=== PATIENT | female | born 1960 | race Caucasian/White ===

== ENCOUNTER 2016-11-01 05:45 | Day surgery (SDC) | payer MEDICARE, OTHER ==
[~2016-11-01] VITALS: Ht 167.6 cm; Wt 142.9 kg
--- OUTSIDE RECORDS SUMMARY | ~2016-11-01 | XMS ---
Demographics + + + | Address | [address] [place] [address] | | | [place] [address] | + + + | Preferred Language | Unknown | + + + | Marital Status | Unknown | + + + | Worship Affiliation | Unknown | + + + | Race | Unknown | + + + | Ethnic Group | Unknown | + + + Author + + + | Author | [facility] | + + + | Organization | [facility] | + + + | Address | 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, | | | | | | | | right, | | | | | | | | acquired | | | | | | +---------+ + + +--------+ + + | Problem | Morbid | | E66.01 | | Active | [id number] | | | obesity | | | | | | +---------+ + + +--------+ + + | Problem | Aneurysm | Q87.89 | | | Active | | | | osteoarthr | | | | | | | | itis | | | | | | | | syndrome | | | | | | +---------+ + + +--------+ + + | Problem | 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 | | | Active | 10085002 | | | a | | | | | | +---------+ + + +--------+ + + | Problem | Asthma | | J45.909 | | Active | 101907540 | +---------+ + + +--------+ + + | Problem | Skin | L98.9 | | | Active | 05159852 | | | lesion | | | | | | +---------+ + + +--------+ + + | Problem | 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 | | | Active | 77498855 | | | e lung | | | | | | | | disease | | | | | | +---------+ + + +--------+ + + | Problem | SAMAYOA | K75.81 | | | Active | [id number] | | | (nonalcoho | | | | | | | | lic | | | | | | | | steatohepa | | | | | | | | titis) | | | | | | +---------+ + + +--------+ + + | Problem | CKD | | N18.3 | | Active | 968263288 | | | (chronic | | | | | | | | kidney | | | | | | | | disease) | | | | | | | | stage 3, | | | | | | | | GFR 30-59 | | | | | | | | ml/min | | | | | | +---------+ + + +--------+ + + | Problem | Sleep | G47.30 | | | Active | 97861270 | | | apnea | | | | | | +---------+ + + +--------+ + + | Problem | Encounter | | Z13.89 | | Active | 739284340 | | | for | | | | | | | | screening | | | | | | | | for other | | | | | | | | disorder | | | | | | +---------+ + + +--------+ + + | Problem | CHF | | I50.9 | | Active | 15968335 | | | (congestiv | | | | | | | | e heart | | | | | | | | failure) | | | | | | +---------+ + + +--------+ + + | Problem | Depression | | F32.9 | | Active | 815535646 | +---------+ + + +--------+ + + | Problem | Maxillary | J33.8 | | | Active | 26923176 | | | sinus | | | | | | | | polyp | | | | | | +---------+ + + +--------+ + + | Problem | Emphysema, | | J43.9 | | Active | 33416828 | | | | | | | | | | | unspecifie | | | | | | | | d | | | | | | +---------+ + + +--------+ + + | Problem | Chronic | | G89.4 | | Active | 845190748 | | | pain | | | | | | | | syndrome | | | | | | +---------+ + + +--------+ + + | Problem | HTN | | I10 | | Active | 22675512 | | | (hypertens | | | | | | | | ion) | | | | | | +---------+ + + +--------+ + + | Problem | Obesity | E66.2 | | | Active | 810661262 | | | hypoventil | | | | | | | | ation | | | | | | | | syndrome | | | | | | +---------+ + + +--------+ + + | Problem | COPD | | J44.9 | | Active | 63567950 | | | (chronic | | | | | | | | obstructiv | | | | | | | | e | | | | | | | | pulmonary | | | | | | | | disease) | | | | | | +---------+ + + +--------+ + + | Problem | DAWOOD | G47.33 | | | Active | 52340903 | | | (obstructi | | | | | | | | ve sleep | | | | | | | | apnea) | | | | | | +---------+ + + +--------+ + + | Problem | Localized | | R60.0 | | Active | 1674642 | | | edema | | | | | | +---------+ + + +--------+ + + | Problem | Osteoarthr | M15.9 | | | Active | 959650665 | | | itis of | | | | | | | | multiple | | | | | | | | joints | | | | | | +---------+ + + +--------+ + + ALLERGIES + + + + +---------+ | Substance | Reaction | Event Type | Date | Status | + + + + +---------+ | N.K.D.A. | Unknown | Non Drug | Oct, | Unknown | | | | Allergy | | | + + + + +---------+ SOCIAL HISTORY No smoking Hx information available PLAN OF CARE + +---------+ | Activity | Details | + +---------+ +---+ | | +---+ + + + | Follow Up | 6 Weeks Reason:null | + + + VITAL SIGNS + + + + | Height | 67 in | 2016-10-25 | + + + + | Weight | 318.4 lbs | 2016-10-25 | + + + + | BMI | 49.86 kg/m2 | 2016-10-25 | + + + + | Temperature | 97.9 degrees Fahrenheit | 2016-10-25 | + + + + | Heart Rate | 64 /min | 2016-10-25 | + + + + | Blood pressure systolic | 142 mm Hg | 2016-10-25 | + + + + | Blood pressure diastolic | 77 mm Hg | 2016-10-25 | + + + + MEDICATIONS + + + + + + + +--------+ | Medicati | Instruct | Dosage | Frequenc | Start | End Date | Duration | Status | | on | ions | | y | Date | | | | + + + + + + + +--------+ | Zoloft | Orally | 1 tablet | 24h | 26 Jun, | | 90 days | Active | | 100 MG | Once a | | | 2015 | | | | | | day | | | | | | | + + + + + + + +--------+ | Ventolin | Inhalati | 2 puffs | | 05 October, | | 1 Month | Active | | HFA 108 | on every | as | | 2016 | | | | | (90 | 4 hrs | needed | | | | | | | Base) | prn | | | | | | | | MCG/ACT | SOB/Whee | | | | | | | | | ze/Cough | | | | | | | + + + + + + + +--------+ | Amlodipi | Orally | 1 tablet | 24h | 10 Feb, | | 90 days | Active | | ne | Once a | | | 2015 | | | | | Besylate | day | | | | | | | | 5 MG | | | | | | | | + + + + + + + +--------+ | Ventolin | Inhalati | 2 puffs | 4h | | | | Active | | HFA 90 | on every | as | | | | | | | MCG/ACT | 4 hrs | needed | | | | | | + + + + + + + +--------+ | Sertrali | Orally | 2 tablet | 24h | | | 30 days | Active | | ne HCl | Once a | | | | | | | | 100 MG | day | | | | | | | + + + + + + + +--------+ | Lisinopr | Orally | 1 tablet | 24h | Jun, | | 90 days | Active | | il 20 mg | Once a | | | 2015 | | | | | | day | | | | | | | + + + + + + + +--------+ | BuSpar | Orally | 1 tablet | 12h | 20 Harley, | | 30 | Active | | 15 MG | Twice a | | | 2017 | | day(s) | | | | day | | | | | | | + + + + + + + +--------+ | Breo | | 1 puff | | | | | Active | | Ellipta | | | | | | | | | 100-25 | | | | | | | | | MCG/INH | | | | | | | | + + + + + + + +--------+ | Lasix 20 | Orally | 1 tablet | 24h | 11 Jun, | | 90 days | Active | | MG | Once a | | | 2015 | | | | | | day | | | | | | | + + + + + + + +--------+ | Furosemi | Orally | 1 tablet | 24h | | | | Active | | de 20 MG | Once a | | | | | | | | | day | | | | | | | + + + + + + + +--------+ | Erythrom | External | 1 | 12h | | | | Active | | ycin 2 % | ly Twice | applicat | | | | | | | | a day | ion to | | | | | | | | | affected | | | | | | | | | area | | | | | | + + + + + + + +--------+ RESULTS No Results PROCEDURES + + + + + | Procedure | Date Ordered | Related Diagnosis | Body Site | + + + + + | Office Visit, Est | October 25, 2016 | | | | Pt., Level 3 | | | | + + + + + | [facility] MED/CURRENT | October 25, 2016 | | | | MED MERGE | | | | + + + + + IMMUNIZATIONS No Known Immunizations"
--- OUTSIDE RECORDS SUMMARY | ~2016-11-01 | XMS ---
Demographics + + + | Address | [address] [place] [address] | | | [place] [address] | + + + | Preferred Language | Unknown | + + + | Marital Status | Unknown | + + + | Nondenominational Affiliation | Unknown | + + + | Race | Unknown | + + + | Ethnic Group | Unknown | + + + Author + + + | Author | [facility] | + + + | Organization | [facility] | + + + | Address | [address] | | | [place] [address] | + + + | Phone | | + + + Care Team Providers + + + + | Care Flight Test Shop Mechanic Name | Role | Phone | + + + + Unavailable | Unavailable | + + + + PROBLEMS +---------+ + + +--------+ + + | Type | Condition | ICD9-CM | OAY28-PU | Onset | Condition | SNOMED | | | | Code | Code | Dates | Status | Code | +---------+ + + +--------+ + + | Problem | Osteoarthr | M15.9 | | | Active | [id number] | | | itis of | | [...] | L98.9 | | | Active | 20652270 | | | lesion | | | | | | +---------+ + + +--------+ + + | Problem | 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 | | | Active | 44871692 | | | e lung | | | | | | | | disease | | | | | | +---------+ + + +--------+ + + | Problem | Encounter | | Z13.89 | | Active | 401277751 | | | for | | | | | | | | screening | | | | | | | | for other | | | | | | | | disorder | | | | | | +---------+ + + +--------+ + + | Problem | SAMAYOA | K75.81 | | | Active | 479162762 | | | (nonalcoho | | | | | | | | lic | | | | | | | | steatohepa | | | | | | | | titis) | | | | | | +---------+ + + +--------+ + + | Problem | Sleep | G47.30 | | | Active | 80170928 | | | apnea | | | | | | +---------+ + + +--------+ + + | Problem | Morbid | | E66.01 | | Active | 236687593 | | | obesity | | | | | | +---------+ + + +--------+ + + | Problem | CHF | | I50.9 | | Active | 29077618 | | | (congestiv | | | | | | | | e heart | | | | | | | | failure) | | | | | | +---------+ + + +--------+ + + | Problem | CKD | | N18.3 | | Active | 532790965 | | | (chronic | | | [...] | | G89.4 | | Active | 278305035 | | | pain | | | | | | | | syndrome | | | | | | +---------+ + + +--------+ + + | Problem | Depression | | F32.9 | | Active | 722863872 | +---------+ + + +--------+ + + | Problem | Asthma | | J45.909 | | Active | 569435017 | +---------+ + + +--------+ + + | Problem | Emphysema, | | J43.9 | | Active | 06627394 | | | | | | | | | | | unspecifie | | | | | | | | d | | | | | | +---------+ + + +--------+ + + | Problem | Localized | | R60.0 | | Active | 8627569 | | | edema | | | | | | +---------+ + + +--------+ + + | Problem | HTN | | I10 | | Active | 69826551 | | | (hypertens | | | | | | | | ion) | | | | | | +---------+ + + +--------+ + + | Problem | Maxillary | J33.8 | | | Active | 63279894 | | | sinus | | | | | | | | polyp | | | | | | +---------+ + + +--------+ + + | Problem | Obesity | E66.2 | | | Active | 646370152 | | | hypoventil | | | | | | | | ation | | | | | | | | syndrome | | | | | | +---------+ + + +--------+ + + | Problem | COPD | | J44.9 | | Active | 29155057 | | | (chronic | | | | | | | | obstructiv | | | | | | | | e | | | | | | | | pulmonary | | | | | | | | disease) | | | | | | +---------+ + + +--------+ + + | Problem | DAWOOD | G47.33 | | | Active | 87688994 | | | (obstructi | | | [...] N.K.D.A. | Unknown | Non Drug | September, | Unknown | | | | Allergy | | | + + + + +---------+ SOCIAL HISTORY No smoking Hx information available PLAN OF CARE + +---------+ | Activity | Details | + +---------+ +---+ | | +---+ + + + | Follow Up | 2 Months Reason:null | + + + VITAL SIGNS + + + + | Height | 67 in | 2016-10-05 | + + + + | Weight | 315.4 lbs | 2016-10-05 | + + + + | BMI | 49.39 kg/m2 | 2016-10-05 | + + + + | Temperature | 97.8 degrees Fahrenheit | 2016-10-05 | + + + + | Heart Rate | 77 /min | 2016-10-05 | + + + + | Blood pressure systolic | 147 mm Hg | 2016-10-05 | + + + + | Blood pressure diastolic | 85 mm Hg | 2016-10-05 | + + + + MEDICATIONS + [...] | 1 tablet | 24h | 11 Feb, | | 90 days | Active | | MG | Once a | | | 2016 | | | | | | day [...] | 1 tablet | 24h | 10 Oct, | | 90 days | Active | | ne | Once a | | | 2015 | | | | | Besylate | day | | | | | | | | 5 MG | | | | | | | | + + + + + + + +--------+ | Augmenti | Orally | one | 12h | 31 September, | 7 Harley, | 7 days | Active | | n | twice a | tablet | | 2017 | 2017 | | | | 500-125 | day | | | | | | | | MG | | | | | | | | + + + + + + + +--------+ | Ventolin | Inhalati | 2 puffs | | 05 October, | | 1 Month | Active | | HFA 108 | on every | as | | 2017 | | | | | (90 | [...] + | Office Visit, Est | October 05, 2016 | | | | Pt., Level 4 | | | | + + + + + | [facility] MED/CURRENT | October 05, 2016 | | | | MED MERGE | | | | + + + + + IMMUNIZATIONS No Known Immunizations"
[~2016-11-01 05:45] MED LIST: LASIX20 MG PO; LISINOPRIL20 MG PO; NORCO 10-325 T1 EACH PO; TYLENOL EXTRA500 MG PO; ZOLOFT100 MG PO
[2016-11-01] MEDS ORDERED: NORVASC5 MG PO (05:57)
--- NOTE | 2016-11-01 08:19 | NUR ---
11/01/16 0819 Xi De La Garza 0802-PATIENT ARRIVED TO PACU ON 10L MASK WEANED TO 6L O2 SAT 100% PATIENT REACTIVE AND RESPONDS TO VOICE DENIES PAIN EYES CLOSED. GAUZE TO NASAL CDI.
--- NOTE | 2016-11-01 08:46 | NUR ---
COFFEE AND ICED WATER GIVEN. CALL LIGHT W/IN REACH.
[2016-11-01] MEDS ORDERED: KEFLEX500 MG PO (08:57)
[2016-11-01] MEDS ORDERED: NORCO 5-325 TA1 EACH PO (08:57)
--- NOTE | 2016-11-01 09:53 | NUR ---
PT UP TO BR W/RN STANDBY. PT AMBULATES WELL AND DENIES DIZZINESS. PT REPORTS SUCCESSFUL VOID AND REQ DC HOME. PT CALLING RIDE HOME.
--- NOTE | 2016-11-01 09:57 | NUR ---
VERBAL DC INSTRUCTIONS GIVEN AND MD IN TO SPEAK W/PATIENT. PATIENT REPORTS CONCERNS W/TAKING NORCO AND MD INSTRUCTS HER TYLENOL AND IBUPROFEN OTC IS FINE TO TAKE IN NORCO'S PLACE. PT VERBALIZES UNDERSTANDING.
== END 2016-11-01 10:30 | disposition home or self-care (01) ==
LOC: DS 05:45 → OPS 05:45 → DS 06:45 → OPS 06:45
PROVIDERS: Otolaryngology
PROC: 09BV4ZZ Excision of Left Ethmoid Sinus, Percutaneous Endoscopic Approach (ICD-10-PCS; principal; 2016-11-01 06:45)
DX: J32.2 Chronic ethmoidal sinusitis (principal); J33.8 Other polyp of sinus; I10 Essential (primary) hypertension; J44.9 Chronic obstructive pulmonary disease, unspecified; N19 Unspecified kidney failure; F32.9 Major depressive disorder, single episode, unspecified; Z96.641 Presence of right artificial hip joint; Z98.890 Other specified postprocedural states
CPT/HCPCS: 00160; J0330; J0690; J1100; J2250; J2405; J2704; J3010; J7120

== ENCOUNTER 2017-09-05 07:12 | Day surgery (SDC) | payer MEDICARE, OTHER ==
[~2017-09-05] VITALS: Ht 167.6 cm; Wt 138.8 kg
[~2017-09-05 07:12] MED LIST changes: +KEFLEX500 MG PO; +NORCO 5-325 TA1 EACH PO; +NORVASC5 MG PO
[2017-09-05] MEDS ORDERED: FLUOXETINE HCL40 MG PO (07:31)
[2017-09-05] MEDS ORDERED: TOLTERODINE TART1 MG PO (07:32)
[2017-09-05] MEDS ORDERED: BUPROPION HCL100 MG PO (07:32)
[2017-09-05] MEDS ORDERED: VENTOLIN HFA18 GM INH (07:33)
[2017-09-05] MEDS ORDERED: BREO ELLIPTA I1 EACH INH (07:33)
--- NOTE | 2017-09-05 08:58 | NUR ---
09/05/17 0858 Radha Guillermo 0812 PATIENT ARRIVES TO PACU SLEEPING, AWAKENS WITH VERBAL STIMULI, ANSWERS QUESTIONS THEN BACK TO SLEEP. RESP EVEN AND UNLABORED, OXYMASK AT 5 LITERS.
--- NOTE | 2017-09-05 09:29 | OR ---
[facility] [address] [place], [place] [address] Signed DATE OF OPERATION: 09/05/2017 SURGEON: Lopez Mills MD PREOPERATIVE DIAGNOSES: 1. Diverticulosis. 2. Internal hemorrhoids. 3. Paternal grandmother with colon cancer in her 40s. POSTOPERATIVE DIAGNOSIS: Vnowacu-wn-aglubixa internal hemorrhoids. PROCEDURE: Colonoscopy without biopsy. ESTIMATED BLOOD LOSS: None. INDICATIONS: Ivana is a 57-year-old female who came to us in 2013 for a colonoscopy. However, she had fallen and needed a right hip replacement and had been on quite a bit of morphine. We gave her 8 mg of Versed and 150 mcg of fentanyl to time and we could not get her sleep whatsoever. We had to terminate the colonoscopy in the sigmoid colon. We did see a few diverticula and some internal hemorrhoids. In addition, her paternal grandmother developed colon cancer in her late 40s and from the colon cancer by age 56. In the meantime, Ivana is recovered from her hip and doing much better. She has been off all narcotics now for about 4 years. She wanted to come back and repeat the colonoscopy at this time. She has no lower GI complaints. I gave her a pamphlet on colonoscopy. We looked at that together along with the risks including, but not limited to gas bloating, crampy abdominal pain, bleeding, perforation, requiring surgery, and missed diagnosis. We also reviewed the issue of the IV Versed and fentanyl. We offered propofol with an anesthesia provider and she declined. She wanted to try the Versed and fentanyl. PROCEDURE NOTE: Ivana was taken into our endoscopy suite and placed in the left lateral decubitus position. She was given 8 mg of Versed and 150 mcg of fentanyl and was still moaning and moving about the bed. We did get the camera into the cecum itself. Fortunately, her scope was technically easy and the prep was quite good. We have taken some pictures for photodocumentation. The scope was then slowly withdrawn. We saw no pathology in the entire colon or rectum. She may have had some diverticulosis. We simply did not Electronically Signed By: LOPEZ MILLS MD 09/05/17 0929 PATIENT NAME: IVANA PALACIOS OPERATIVE REPORT DATE OF : 62 REPORT #: [id number] PHYSICIAN: LOPEZ MILLS MD PCP: IRVING STEWART MD REPORT IS CONFIDENTIAL AND NOT TO BE RELEASED WITHOUT AUTHORIZATION [facility] [address] [place], [place] [address] Signed see them. Upon retroflexion of the scope, she does have minimal to moderate internal hemorrhoids. After this, the gas was suctioned out. The colonoscope removed. In general, Ivana tolerated the procedure, but moan and groan most of the procedure and was awaken and certainly was awake during retroflexion of the scope in the rectum. RECOMMENDATIONS: Ivana will need to follow up every 5 years for repeat colonoscopy due to her family history. She should strongly consider propofol infusion for her future endoscopies. Lopez Mills MD ALB/MODL /[id number] cc: MD Irving David MD Copies: LOPEZ MILLS MD, MALCOLM MD ~ Electronically Signed By: LOPEZ MILLS MD 09/05/17 0929 PATIENT NAME: IVANA PALACIOS OPERATIVE REPORT DATE OF : 62 REPORT #: [id number] PHYSICIAN: LOPEZ MILLS MD PCP: IRVING STEWART MD REPORT IS CONFIDENTIAL AND NOT TO BE RELEASED WITHOUT AUTHORIZATION
== END 2017-09-05 09:35 | disposition home or self-care (01) ==
LOC: DS 07:12 → OPS 07:12 → DS 08:15 → OPS 09:35
PROVIDERS: Colon & Rectal Surgery
PROC: 0DJD8ZZ Inspection of Lower Intestinal Tract, Via Natural or Artificial Opening Endoscopic (ICD-10-PCS; principal; 2017-09-05 08:15)
DX: Z12.11 Encounter for screening for malignant neoplasm of colon (principal); K64.8 Other hemorrhoids; I13.0 Hypertensive heart and chronic kidney disease with heart failure and stage 1 through stage 4 chronic kidney disease, or unspecified chronic kidney disease; I50.9 Heart failure, unspecified; N18.3 Chronic kidney disease, stage 3 (moderate); J44.9 Chronic obstructive pulmonary disease, unspecified; G47.33 Obstructive sleep apnea (adult) (pediatric); E78.2 Mixed hyperlipidemia; M19.90 Unspecified osteoarthritis, unspecified site; E66.01 Morbid (severe) obesity due to excess calories; Z68.42 Body mass index [BMI] 45.0-49.9, adult; Z80.0 Family history of malignant neoplasm of digestive organs; Z79.51 Long term (current) use of inhaled steroids; Z79.899 Other long term (current) drug therapy
CPT/HCPCS: 99153; G0500; J2250; J3010; J7120

== ENCOUNTER 2020-01-06 12:39 | Emergency (ER) | payer MEDICARE, OTHER ==
[~2020-01-06] VITALS: Ht 167.6 cm; Wt 141.5 kg
--- OUTSIDE RECORDS SUMMARY | ~2020-01-06 | XMS | Encounter Summary ---
Demographics + + + | Address | [address] | | | [place] [address] | + + + | Home Phone | | + + + | Preferred Language | Unknown | + + + | Marital Status | Single | + + + | Pentecostalism Affiliation | Unknown | + + + | Race | White | + + + | Ethnic Group | Not or | + + + Author + + + | Author | [facility] | | | and [place] | + + + | Organization | [facility] | | | and [place] | + + + | Address | Unknown | + + + | Phone | Unavailable | + + + Support + + +---------+ + | Name | Relationship | Address | Phone | + + +---------+ + | To List Per Pt None | ECON | Unknown | | + + +---------+ + Care Team Providers + +------+ + | Care Staff Services Manager Name | Role | Phone | + +------+ + | Irving Norris MD | PCP | | + +------+ + Reason for Visit + +--------+ + | Reason | Onset | Comments | | | Date | | + +--------+ + | Appointment | 10/07/ | | | | 2016 | | + +--------+ + Encounter Details +--------+ + + + + | Date | Type | Department | Care Team | Description | +--------+ + + + + | 10/07/ | Telephone | [facility] | [place], | [place] | | 2017 | | PULMONARY [address] | MD [address] | | | | | [place], | [place], [place] | | | | | [place] [address] | [address] | | | | | [phone] | | | +--------+ + + + + Social History + + + +--------+ + | Tobacco Use | Types | Packs/Day | Years | Date | | | | | Used | | + + + +--------+ + | Former Smoker | Cigarettes | 3 | | 05/15/1979 - | | | | | | 12/03/2000 | + + + +--------+ + + +---+---+---+ | Smokeless Tobacco: | | | | | Never Used | | | | + +---+---+---+ + + +---------+ + | Alcohol Use | Drinks/Week | oz/Week | Comments | + + +---------+ + | No | 0 Standard drinks | 0.0 | | | | or equivalent | | | + + +---------+ + + + + | Sex Assigned at | Date Recorded | | | | + + + | Not on file | | + + + documented as of this encounter Miscellaneous Notes Telephone Encounter - Julianne Babcock - 10/07/2016 2:48 PM PDTPatient declined to schedul e a yearly follow up in April. 2:4 9 PM PDTdocumented in this encounter Plan of Treatment Not on filedocumented as of this encounter Visit Diagnoses Not on filedocumented in this encounter"
--- OUTSIDE RECORDS SUMMARY | ~2020-01-06 | XMS | Encounter Summary ---
Demographics + + + | Address | [address] | | | [place] [address] | + + + | Home Phone | | + + + | Preferred Language | Unknown | + + + | Marital Status | Single | + + + | Lutheran Affiliation | Unknown | + + + | Race | White | + + + | Ethnic Group | Not or | + + + Author + + + | Author | [facility] | | | and Shajiana | + + + | Organization | [facility] | | | and [...] Team Providers + +------+ + | Care Stable Helper Name | Role | Phone | + +------+ + | Irving Norris MD | PCP | | + +------+ + Reason for Visit +--------+ + | Reason | Comments | +--------+ + | Asthma | 6 wk follow up | +--------+ + Encounter Details +--------+---------+ + + + | Date | Type | Department | Care Team | Description | +--------+---------+ + + + | 04/27/ | Office | [facility] | Harshal Vincent, | Moderate persistent | | 2015 | Visit | PULMONARY [address] | MD [address] | asthma without | | | | [place], | [place], [place] | complication | | | | [place] [address] | [id number] | (Primary Dx); DAWOOD on | | | | [phone] | | CPAP; Restrictive | | | | | | lung disease | +--------+---------+ + + + Social History + + [...] | | | + +---+---+---+ + + | Tobacco Cessation: Counseling Given: No | + + + + +---------+ + | Alcohol Use [...] + + documented as of this encounter Last Filed Vital Signs + + + + + | Vital Sign | Reading | Time Taken | Comments | + + + + + | Blood Pressure | 114/80 | 04/27/2016 2:14 PM | | | | | PST | | + + + + + | Pulse | 84 | 04/27/2016 2:14 PM | | | | | PST | | + + + + + | Temperature | - | - | | + + + + + | Respiratory Rate | - | - | | + + + + + | Oxygen Saturation | 95% | 04/27/2016 2:14 PM | | | | | PST | | + + + + + | Inhaled Oxygen | - | - | | | Concentration | | | | + + + + + | Weight | 146.3 kg (322 lb 9.6 | 04/27/2016 2:14 PM | | | | oz) | PST | | + + + + + | Height | 165.1 cm (5' 5") | 04/27/2016 2:14 PM | | | | | PST | | + + + + + | Body Mass Index | 53.68 | 04/27/2016 2:14 PM | | | | | PST | | + + + + + documented in this encounter Patient Instructions Patient Instructions Harshal Vincent MD - 04/27/2016 2:58 PM PST Continuous Positive Air Pressure (CPAP) Continuous positive air pressure (CPAP)uses gentle air pressure to hold the airway open. CPAP is often the most effective treatment for sleep apnea and severe snoring. It works very well for many people. But keep in mind that it can take several adjustments before the setu p is right for you. How CPAP works The CPAPmachine is asmall portable pump beside the bed. The pumpsends air through a h ose, which is held over your noseand mouthby a mask.Mild air pressureis gently pushe d through your airway. The air pressure nudges sagging tissues aside. This widens the airway so you can breathe better. CPAP may be combined with other kinds of therapy for sleep apnea . A mask over the nose gently directs air into the throat to keep the airway open. Types of air pressure treatments There are different types of CPAP. Your doctor or CPAP highway engineering technician will help you decide whic h type is best for you: Basic CPAPkeeps the pressure constant all night long. A bilevel device(BiPAP)providesmore pressure when you breathe in and less when you breathe out.A BiPAP machine also may be set to provide automatic breaths to maintain gayle thing if you stop breathing while sleeping. An autoCPAP deviceautomatically adjusts pressure throughout the night and in response to changes such as body position, sleep stage, and snoring. [id number] [employer]. [address] [place] [address], [place] [address]. All righ ts reserved. This information is not intended as a substitute for professional medical care. Always follow your healthcare professional's instructions. documented in this encounter Progress Notes Harshal Vincent MD - 04/27/2016 3:18 PM PSTFormatting of this note might be different f rom the original. Pulmonary Follow Up 04/27/2016 HPI Ivana Robb is a 55 y.o. female patient of Irving Norris MD here today for follow up of asthma, restrictive lung disease and obstructive sleep apnea. The patient's last visit was on 03/14/16. Since the last visit she feels like their asthma has been stable. They have not had any acute illnesses resulting in worsening asthma sympt oms. They have not required a burst of prednisone since our last appointment. Specificall y 0 tapers of prednisone have occurred over the interval. Lastly Ivana notes 0 ED visits and 0 hospitalizations for asthma have occurred since the last appointment. Their controller medication regimen currently consists of Breo 100/25 once daily. Apparent ly since our last clinic appointment the patient was taken off of Breo and placed on Dulera secondary to her insurance. Dulera did not result in clinical improvement. She was subsequ ently placed on Advair and noted that it caused her "lungs hurt". The patient is back using Breo and feels 150% better. They do feel like this medication regimen is effective at controlling their symptoms. Curr ently Ivana is using their rescue albuterol, Ventolin, 1 times a week. Currently Ivana reports being able to walk 100 1 50 yards at their own pace on level [facility] before becoming symptomatic. The patient reports actively trying to lose weight. She does not cough chronically, and does not produce mucous. She does not report symptoms of heartburn or acid reflux. They have not had recent symptoms of nasal congestion, runny nose or post nasal drip. New triggers since the last appointment include none. Ivana Robb is not smoking cigarettes. The patient has received this year's influenza vaccination. They are up to date with their Pneumovax and Prevnar 13. Patient is going to bed at 10 PM and awakening at 6 AM. She is using CPAP without. Appare ntly the patient's CPAP device does not allow for downloaded compliance information. Her weight is down 2 pounds and 7 ounces since her last clinic appointment. Past Medical History Past Medical History Diagnosis Date Hypertension COPD (chronic obstructive pulmonary disease) ([facility]) 2005 Obesity Sleep apnea on CPAP since 2005 CHF (congestive heart failure) ([facility]) Depression Arthritis Osteoarthritis Mitral regurgitation Restrictive lung disease Asthma patient denies Pneumonia multiple episodes 1070-1492 Chronic renal disease PRES (posterior reversible encephalopathy syndrome) Allergies: No Known Allergies Medications: Current outpatient prescriptions: acetaminophen (TYLENOL) 500 mg tablet, Take 2,000 mg by mouth Daily., Disp: , Rfl: albuterol (VENTOLIN HFA) 90 mcg/puff inhaler, Inhale 2 puffs into the lungs every 4 ho urs as needed for Wheezing., Disp: , Rfl: amLODIPine (NORVASC) 5 mg tablet, Take one tablet daily, Disp: , Rfl: 0 BREO ELLIPTA 100-25 MCG/INH inhaler, Inhale 1 puff into the lungs Daily., Disp: , Rfl: furosemide (LASIX) 20 mg tablet, Take 20 mg by mouth Daily., Disp: , Rfl: lisinopril (PRINIVIL, ZESTRIL) 20 mg tablet, Take 20 mg by mouth Daily., Disp: , Rfl: sertraline (ZOLOFT) 100 mg tablet, Take 100 mg by mouth Daily., Disp: , Rfl: Immunizations: Immunization History Administered Date(s) Administered INFLUENZA 65 Y OR >, TRIVALENT HIGH-DOSE 02/15/2016 INFLUENZA PF QUAD(PED/ADOL/ADULT),PSKT or VIAL 07/22/2015 PNEUMOCOCCAL CONJUGATE 13-VALENT (PCV13) 01/12/2015 PNEUMOCOCCAL POLYSACCHARIDE 23-VALENT (PPSV23) 08/29/2005 TDAP, (ADOL/ADULT) 05/11/2014 Review of Systems Constitutional: Denies fever, chills, sweats, fatigue/weakness, and unexpected weight cain ge. Sleep: Denies trouble sleeping, excessive snoring, and daytime sleepiness. Eyes: Denies vision change, and eye irritation. ENT: Denies earache, tinnitus, decreased hearing, nosebleeds, sore throat, and hoarseness. Resp: See HPI. CV: Denies neck/chest/jaw pain with exertion, palpitations, lightheadedness, syncope, dysp adonay on exertion, orthopnea, PND, peripheral edema, and claudication. GI: Denies trouble swallowing, nausea, vomiting, abdominal pain, diarrhea,melena, and hem atochezia. Neurologic: Denies frequent headaches, seizures, tremors, numbness or tingling in hands or feet, vertigo, and falls in the past 6 months. Allergy Denies urticaria, allergic rash, hay fever. Objective BP 114/80 mmHg | Pulse 84 | Ht 1.651 m (5' 5") | Wt 146.33 kg (322 lb 9.6 oz) | BMI 53.68 k g/m2 | SpO2 95% | ? No Appearance: Alert, cooperative, no distress, appears stated age. Head: Normocephalic, without obvious abnormality, atraumatic. Eyes: PERRL, conjunctiva/corneas clear. Nose: Nares normal, septum midline, mucosa normal, no drainage or sinus tenderness. Throat: Lips, mucosa, and tongue normal. Teeth/dentures normal. No thrush. Neck: Supple, symmetrical, no JVD. Lungs: No accessory muscle use, breath sounds are clear to auscultation bilaterally, no w heezes, crackles or rhonchi. No dullness to percussion. Chest Wall: No tenderness or deformity. Heart: Regular rate and rhythm, S1, S2 normal, no murmur, rub or gallop. Extremities: Extremities normal, atraumatic, no cyanosis, clubbing. none edema. Skin: Warm and dry. Lymph nodes: Cervical and supraclavicular nodes normal. Neurologic: Gait normal. Data: Attempts to obtain a copy of the patient's prior sleep study were not successful. Assessment 1. Asthma moderate persistent primarily based on the medications required to maintain ad equate asthma control. As noted above it appears that Breo 100/25 alone is able to control the patient symptoms without significant side effects. Ivana is up-to-date with respect to her seasonal influenza, Pneumovax and Prevnar 13. 2. Obstructive sleep apnea severity unclear. Currently treated with auto titrating CPAP . Good compliance is noted in the patient's symptoms appear well controlled. 3. Restrictive lung disease secondary to morbid obesity. Weight is gradually decreasing . Patient congratulated regarding her progress. Plan 1. Seasonal influenza vaccination February 2017. 2. Pulmonary clinic follow-up appointment in 12 months time. 3. No plan to change the patient's asthma medications at this time. CC: Irving Norris MD documented in this encounter Plan of Treatment Not on filedocumented as of this encounter Visit Diagnoses + + | Diagnosis | + + | Moderate persistent asthma without complication - Primary Unspecified asthma | + + | DAWOOD on CPAP Obstructive sleep apnea (adult) (pediatric) | + + | Restrictive lung disease Other diseases of lung, not elsewhere classified | + + documented in this encounter
--- OUTSIDE RECORDS SUMMARY | ~2020-01-06 | XMS ---
Demographics + + + | Address | [address] [place] [address] | | | [place] [address] | + + + | Preferred Language | Unknown | + + + | Marital Status | Unknown | + + + | Jehovah'S Witness Affiliation | Unknown | + + + | Race | Unknown | + + + | Ethnic Group | Unknown | + + + Author + + + | Author | [facility] | + + + | Organization | [facility] | + + + | Address | [address] | | | [place] [address] | + + + | Phone | | + + + Care Team Providers + + + + | Care Manager Sterile Name | Role | Phone | + + + + Unavailable | Unavailable | + + + + PROBLEMS +---------+ + + +--------+ + + | Type | Condition | ICD9-CM | [id number] | Onset | Condition | SNOMED | [...] | | E66.01 | | Active | 306509005 | | | obesity | | | [...] | F40.00 | | | Active | 29710489 | | | a | | | | | | +---------+ + + +--------+ + + | Problem | Emphysema, | | J43.9 | | Active | 86259973 | | | | | | | | | | | unspecifie | | | | | | | | d | | | | | | +---------+ + + +--------+ + + | Problem | Skin | L98.9 | | | Active | 42105002 | | | lesion | | | | | | +---------+ + + +--------+ + + | Problem | Asthma | | J45.909 | | Active | 648582593 | +---------+ + + +--------+ + + | Problem | 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 | | | Active | 10092826 | | | e lung | | | | | | | | disease | | | | | | +---------+ + + +--------+ + + | Problem | CKD | | N18.3 | | Active | 928090413 | | | (chronic | | | [...] | G47.30 | | | Active | 45196740 | | | apnea | | | | | | +---------+ + + +--------+ + + | Problem | Encounter | | Z13.89 | | Active | 657528837 | | | for | | | | | | | | screening | | | | | | | | for other | | | | | | | | disorder | | | | | | +---------+ + + +--------+ + + | Problem | CHF | | I50.9 | | Active | 33501974 | | | (congestiv | | | | | | | | e heart | | | | | | | | failure) | | | | | | +---------+ + + +--------+ + + | Problem | Maxillary | J33.8 | | | Active | 82376638 | | | sinus | | | | | | | | polyp | | | | | | +---------+ + + +--------+ + + | Problem | Candidal | B37.2 | | | Active | 821761408 | | | intertrigo | | | | | | +---------+ + + +--------+ + + | Problem | Chronic | | G89.4 | | Active | 193914247 | | | pain | | | | | | | | syndrome | | | | | | +---------+ + + +--------+ + + | Problem | Depression | | F32.9 | | Active | 045770487 | +---------+ + + +--------+ + + | Problem | HTN | | I10 | | Active | 36399192 | | | (hypertens | | | | | | | | ion) | | | | | | +---------+ + + +--------+ + + | Problem | Obesity | E66.2 | | | Active | 195815638 | | | hypoventil | | | | | | | | ation | | | | | | | | syndrome | | | | | | +---------+ + + +--------+ + + | Problem | COPD | | J44.9 | | Active | 72781242 | | | (chronic | | | | | | | | obstructiv | | | | | | | | e | | | | | | | | pulmonary | | | | | | | | disease) | | | | | | +---------+ + + +--------+ + + | Problem | DAWOOD | G47.33 | | | Active | 25045963 | | | (obstructi | | | | | | | | ve sleep | | | | | | | | apnea) | | | | | | +---------+ + + +--------+ + + | Problem | SAMAYOA | K75.81 | | | Active | 547588405 | | | (nonalcoho | | | | | | | | lic | | | | | | | | steatohepa | | | | | | | | titis) | | | | | | +---------+ + + +--------+ + + | Problem | Localized | | R60.0 | | Active | 9331460 | | | edema | | | | | | +---------+ + + +--------+ + + | Problem | Osteoarthr | M15.9 | | | Active | [id number] | | | itis of | | | | | | | | multiple | | | | | | | | joints | | | | | | +---------+ + + +--------+ + + ALLERGIES + + + + +---------+ | Substance | Reaction | Event Type | Date | Status | + + + + +---------+ | Dl | Unknown | Non Drug | Dec, | Unknown | | | | Allergy | | | + + + + +---------+ SOCIAL HISTORY No smoking Hx information available PLAN OF CARE + +---------+ | Activity | Details | + +---------+ +---+ | | +---+ + + + | Follow Up | 3 Months Reason:null | + + + VITAL SIGNS + + + + | Height | 67 in | 2017-01-03 | + + + + | Weight | 320.8 lbs | 2017-01-03 | + + + + | BMI | 50.24 kg/m2 | 2017-01-03 | + + + + | Temperature | 97.7 degrees Fahrenheit | 2017-01-03 | + + + + | Heart Rate | 79 /min | 2017-01-03 | + + + + | Blood pressure systolic | 155 mm Hg | 2017-01-03 | + + + + | Blood pressure diastolic | 81 mm Hg | 2017-01-03 | + + + + MEDICATIONS + + + + + + + +--------+ | Medicati | Instruct | Dosage | Frequenc | Start | End Date | Duration | Status | | on | ions | | y | Date | | | | + + + + + + + +--------+ | Sertrali | | 2 TABLET | | | | | Active | | ne HCl | | ONCE A | | | | | | | 100 MG | | DAY | | | | | | | | | ORALLY | | | | | | | | | 30 DAYS | | | | | | + [...] | 1 tablet | 24h | 26 Feb, | | 90 days | Active | | il 20 mg | Once a | | | 2015 | | | | | | day | | | | | | | + + + + + + + +--------+ | Tolterod | Orally | 1 tablet | 12h | Dec, | 25 Feb, | 30 | Active | | ine | Twice a | | | 2017 | 2018 | day(s) | | | Tartrate | day | | | | | | | | 1 MG | | | | | | [...] + + + + + +--------+ RESULTS + +--------+ + + | Name | Result | Date | Reference Range | + +--------+ + + | Urinalysis, Dip | | 2017-01-03 | | | (IH) | | | | + +--------+ + + | Specific [place] | 1.015 | | | + +--------+ + + | pH | 5 | | | + +--------+ + + | Leukocytes | 25 | | | + +--------+ + + | Nitrite, Urine | neg | | | + +--------+ + + | Protein | neg | | | + +--------+ + + | Glucose | norm | | | + +--------+ + + | Ketones | neg | | | + +--------+ + + | Urobilingen, | norm | | | | Semi-Qn | | | | + +--------+ + + | Bilirubin | 1 | | | + +--------+ + + | Blood Hemoglobin | neg | | | | (BLD) | | | | + +--------+ + + PROCEDURES + + + + + | Procedure | Date Ordered | Related Diagnosis | Body Site | + + + + + | LAB URINALYSIS (DIP | Jan 03, 2017 | | | | STICK ONLY | | | | + + + + + | US URINE CAPACITY | Jan 03, 2017 | | | | MEASURE | | | | + + + + + | Office Visit, Est | Jan 03, 2017 | | | | Pt., Level 3 | | | | + + + + + IMMUNIZATIONS No Known Immunizations"
--- OUTSIDE RECORDS SUMMARY | ~2020-01-06 | XMS | Encounter Summary ---
Demographics + + + | Address | [address] | | | [place] [address] | + + + | Home Phone | | + + + | Preferred Language | Unknown | + + + | Marital Status | Single | + + + | Rastafarian Affiliation | Unknown | + + + | Race | White | + + + | Ethnic Group | Not or | + + + Author + + + | Author | [facility] | | | and Shajiana | + + + | Organization | [facility] | | | and [...] Team Providers + +------+ + | Care Esthetician And Manager Medical Spa Name | Role | Phone | + +------+ + | Irving Norris MD | PCP | | + +------+ + Encounter Details +--------+ + + + + | Date | Type | Department | Care Team | Description | +--------+ + + + + | 12/09/ | Abstract | [facility] [place] | Harshal Vincent, | | | 2015 | | PULMONARY [address] | | | | | [place], | [place] | | | | | [place] [address] | [address] | | | | | [phone] | | | +--------+ + + + + Social History + +-------+ +--------+ + | Tobacco Use | Types | Packs/Day | Years | Date | | | | | Used | | + +-------+ +--------+ + | Former Smoker | | 3 | | 05/15/1979 - | | | | | | 12/03/2000 | + +-------+ +--------+ + + +---+---+---+ | Smokeless Tobacco: | | | | | Never Used | | | | + +---+---+---+ + + +---------+ + | Alcohol Use | Drinks/Week | oz/Week | Comments | + + +---------+ + | No | | | | + + +---------+ + + + + | Sex Assigned at | Date Recorded | | | | + + + | Not on file | | + + + documented as of this encounter Plan of Treatment Not on filedocumented as of this encounter Visit Diagnoses Not on filedocumented in this encounter"
--- OUTSIDE RECORDS SUMMARY | ~2020-01-06 | XMS ---
Demographics + + + | Address | [address] | | | [place] [address] | + + + | Preferred Language | Unknown | + + + | Marital Status | Unknown | + + + | Voodoo Affiliation | Unknown | + + + | Race | Unknown | + + + | Ethnic Group | Unknown | + + + Author + + + | Author | [facility] | + + + | Organization | [facility] | + + + | Address | [address] | | | [place] [address] | + + + | Phone | | + + + Care Team Providers + + + + | Care Hospice Director Name | Role | Phone | + + + + Unavailable | Unavailable | + + + + PROBLEMS +---------+ + + +--------+ + + | Type | Condition | ICD9-CM | [id number] | Onset | Condition | SNOMED | [...] | | E66.01 | | Active | [id number] | | | obesity | | | [...] | F40.00 | | | Active | 82435214 | | | a | | | | | | +---------+ + + +--------+ + + | Problem | Emphysema, | | J43.9 | | Active | 78647206 | | | | | | | | | | | unspecifie | | | | | | | | d | | | | | | +---------+ + + +--------+ + + | Problem | Skin | L98.9 | | | Active | 18649218 | | | lesion | | | | | | +---------+ + + +--------+ + + | Problem | Asthma | | J45.909 | | Active | 802310240 | +---------+ + + +--------+ + + | Problem | 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 | | | Active | 63281215 | | | e lung | | | | | | | | disease | | | | | | +---------+ + + +--------+ + + | Problem | CKD | | N18.3 | | Active | 597613589 | | | (chronic | | | [...] | G47.30 | | | Active | 09205927 | | | apnea | | | | | | +---------+ + + +--------+ + + | Problem | Encounter | | Z13.89 | | Active | 970950805 | | | for | | | | | | | | screening | | | | | | | | for other | | | | | | | | disorder | | | | | | +---------+ + + +--------+ + + | Problem | CHF | | I50.9 | | Active | 56856795 | | | (congestiv | | | | | | | | e heart | | | | | | | | failure) | | | | | | +---------+ + + +--------+ + + | Problem | Maxillary | J33.8 | | | Active | 95392506 | | | sinus | | | | | | | | polyp | | | | | | +---------+ + + +--------+ + + | Problem | Candidal | B37.2 | | | Active | 731024810 | | | intertrigo | | | | | | +---------+ + + +--------+ + + | Problem | Chronic | | G89.4 | | Active | 870890582 | | | pain | | | | | | | | syndrome | | | | | | +---------+ + + +--------+ + + | Problem | Depression | | F32.9 | | Active | 689977536 | +---------+ + + +--------+ + + | Problem | HTN | | I10 | | Active | 07393304 | | | (hypertens | | | | | | | | ion) | | | | | | +---------+ + + +--------+ + + | Problem | Obesity | E66.2 | | | Active | 522921050 | | | hypoventil | | | | | | | | ation | | | | | | | | syndrome | | | | | | +---------+ + + +--------+ + + | Problem | COPD | | J44.9 | | Active | 57412113 | | | (chronic | | | | | | | | obstructiv | | | | | | | | e | | | | | | | | pulmonary | | | | | | | | disease) | | | | | | +---------+ + + +--------+ + + | Problem | DAWOOD | G47.33 | | | Active | 27950895 | | | (obstructi | | | | | | | | ve sleep | | | | | | | | apnea) | | | | | | +---------+ + + +--------+ + + | Problem | SAMAYOA | K75.81 | | | Active | 529200279 | | | (nonalcoho | | | | | | | | lic | | | | | | | | steatohepa | | | | | | | | titis) | | | | | | +---------+ + + +--------+ + + | Problem | Localized | | R60.0 | | Active | 7255421 | | | edema | | | | | | +---------+ + + +--------+ + + | Problem | Osteoarthr | M15.9 | | | Active | 076332138 | | | itis of | | [...] + | Height | 67 in | 2016-12-06 | + + + + | Weight | 318 lbs | 2016-12-06 | + + + + | BMI | 49.80 kg/m2 | 2016-12-06 | + + + + | Temperature | 97.4 degrees Fahrenheit | 2016-12-06 | + + + + | Heart Rate | 62 /min | 2016-12-06 | + + + + | Blood pressure systolic | 120 mm Hg | 2016-12-06 | + + + + | Blood pressure diastolic | 65 mm Hg | 2016-12-06 | + + + + MEDICATIONS + [...] + + | Office Visit, Est | Dec 06, 2016 | | | | Pt., Level 4 | | | | + + + + + | [facility] MED/CURRENT | Dec 06, 2016 | | | | MED MERGE | | | | + + + + + IMMUNIZATIONS No Known Immunizations"
--- OUTSIDE RECORDS SUMMARY | ~2020-01-06 | XMS | Encounter Summary ---
Demographics + + + | Address | [address] | | | [place] [address] | + + + | Home Phone | | + + + | Preferred Language | Unknown | + + + | Marital Status | Single | + + + | Gnosticism Affiliation | Unknown | + + + | Race | White | + + + | Ethnic Group | Not or | + + + Author + + + | Author | [facility] | | | and Shajiana | + + + | Organization | [facility] | | | [...] Providers + +------+ + | Care Staff Nurse Name | Role | Phone | + +------+ + | Irving Norris MD | PCP | | + +------+ + Encounter Details +--------+ + + + + | Date | Type | Department | Care Team | Description | +--------+ + + + + | 03/02/ | Orders Only | [facility] | Sami Brown MD | | | 2016 | | NEPHROLOGY [place] | [address] [place] | | | | | [address] [place] | [address] [place], [place] | | | | | [address] [place], [place] | [address] | | | | | [id number] | | | | | | [phone] | | | +--------+ + + + [...] Not on filedocumented as of this encounter Procedures + +--------+ + + + | Procedure Name | Priori | Date/Time | Associated Diagnosis | Comments | | | ty | | | | + +--------+ + + + | URINALYSIS WITH | Routin | 03/02/2017 | | Results for this | | MICROSCOPIC IF | e | 1:50 PM | | procedure are in the | | INDICATED | | PDT | | results section. | + +--------+ + + + | PROTEIN/CREATININE | Routin | 03/02/2017 | | Results for this | | RATIO, URINE | e | 1:50 PM | | procedure are in the | | | | PDT | | results section. | + +--------+ + + + documented in this encounter Results Protein/Creatinine Ratio, Urine (03/02/2017 1:50 PM PDT) + + + + + + | Component | Value | Ref Range | Performed | Pathologist | | | | | At | Signature | + + + + + + | Protein/Cre | 160.0 (A) | 0 - 150 | EXTERNAL | | | at Ratio | | | LAB | | + + + + + + + + | Specimen | + + | Urine specimen | | (specimen) | + + + +---------+ + + | Performing | Address | City/State/Zipcode | Phone Number | | Organization | | | | + +---------+ + + | EXTERNAL LAB | | | | + +---------+ + + Urinalysis with Microscopic if Indicated (03/02/2017 1:50 PM PDT) + + + + + + | Component | Value | Ref Range | Performed | Pathologist | | | | | At | Signature | + + + + + + | Color | Yellow | | EXTERNAL | | | | | | LAB | | + + + + + + | Clarity, | Clear | | EXTERNAL | | | Urine | | | LAB | | + + + + + + | Spec Grav, | 1.003 (A) | 1.005 - 1.030 | EXTERNAL | | | Fluid | | | LAB | | + + + + + + | Leukocyte | Negative | | EXTERNAL | | | Esterase, | | | LAB | | | Urine | | | | | + + + + + + | Nitrite, | Negative | | EXTERNAL | | | Urine | | | LAB | | + + + + + + | Urobilinoge | Normal | | EXTERNAL | | | n, Urine | | | LAB | | + + + + + + | Total | Negative | | EXTERNAL | | | Protein | | | LAB | | + + + + + + | pH, Urine | 7 | 5 - 9 | EXTERNAL | | | | | | LAB | | + + + + + + | Blood, | Negative | | EXTERNAL | | | Urine | | | LAB | | + + + + + + | Ketones | Negative | | EXTERNAL | | | | | | LAB | | + + + + + + | Bilirubin, | Negative | | EXTERNAL | | | Urine | | | LAB | | + + + + + + | Glucose, | Negative | | EXTERNAL | | | Urine | | | LAB | | + + + + + + + + | Specimen | + + | Urine specimen | | (specimen) | + + + + + | Narrative | Performed At | + + + | Bacteria: 1+ | EXTERNAL LAB | + + + + +---------+ + + | Performing | Address | City/State/Zipcode | Phone Number | | Organization | | | | + +---------+ + + | EXTERNAL LAB | | | | + +---------+ + + documented in this encounter Visit Diagnoses Not on filedocumented in this encounter"
--- OUTSIDE RECORDS SUMMARY | ~2020-01-06 | XMS | Clinical Summary ---
Demographics + + + | Address | [address] | | | [place] [address] | + + + | Home Phone | | + + + | Preferred Language | Unknown | + + + | Marital Status | Single | + + + | Baptism Affiliation | Unknown | + + + | Race | White | + + + | Ethnic Group | Not or | + + + Author + + + | Author | [facility] | | | and [place]aj[place] | + + + | Organization | [facility] | | | [...] Team Providers + +------+ + | Care Prototype Machinist Name | Role | Phone | + +------+ + | Irving Norris MD | PCP | | + +------+ + Allergies No Known Allergies Medications + + + +---------+------+------+-------+ | Medication | Sig | Dispensed | Refills | Star | End | Statu | | | | | | t | Date | s | | | | | | Date | | | + + + +---------+------+------+-------+ | sertraline | Take 100 mg by mouth | | 0 | | | Activ | | (ZOLOFT) 100 mg | Daily. | | | | | e | | tablet | | | | | | | + + + +---------+------+------+-------+ | furosemide (LASIX) | Take 20 mg by mouth | | 0 | | | Activ | | 20 mg tablet | Daily. | | | | | e | + + + +---------+------+------+-------+ | acetaminophen | Take 2,000 mg by | | 0 | | | Activ | | (TYLENOL) 500 mg | mouth Daily. | | | | | e | | tablet | | | | | | | + + + +---------+------+------+-------+ | lisinopril | Take 20 mg by mouth | | 0 | | | Activ | | (PRINIVIL, ZESTRIL) | Daily. | | | | | e | | 20 mg tablet | | | | | | | + + + +---------+------+------+-------+ | amLODIPine | Take one tablet | | 0 | 10/1 | | Activ | | (NORVASC) 5 mg | daily | | | 0/20 | | e | | tablet | | | | 16 | | | + + + +---------+------+------+-------+ | albuterol | Inhale 2 puffs into | | 0 | | | Activ | | (VENTOLIN HFA) 90 | the lungs every 4 | | | | | e | | mcg/puff inhaler | hours as needed for | | | | | | | | Wheezing. | | | | | | + + + +---------+------+------+-------+ | BREO ELLIPTA | Inhale 1 puff into | | 0 | | | Activ | | 100-25 MCG/INH | the lungs Daily. | | | | | e | | inhaler | | | | | | | + + + +---------+------+------+-------+ | busPIRone (BUSPAR) | Take 15 mg by mouth | | 0 | | | Activ | | 15 mg tablet | 2 times daily. | | | | | e | + + + +---------+------+------+-------+ | gabapentin | Take 300 mg by mouth | | 0 | | | Activ | | (NEURONTIN) 300 mg | Daily. | | | | | e | | capsule | | | | | | | + + + +---------+------+------+-------+ | tolterodine | Take 1 mg by mouth 2 | | 0 | | | Activ | | (DETROL) 1 mg tablet | times daily. 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 | 02/20/2017 | | (BMI) of 50.0 to 59.9 in adult | | + + + | Essential hypertension, benign | 02/20/2017 | + + + | Moderate persistent asthma without complication | 04/27/2016 | + + + | DAWOOD on CPAP | 04/27/2016 | + + + | Restrictive lung disease | 04/27/2016 | + + + Immunizations + + + + | Name | Administration Dates | Next Due | + + + + | INFLUENZA 66 Y OR >, | 02/15/2016 | | | TRIVALENT HIGH-DOSE | | | + + + + | INFLUENZA PF | 07/22/2015 | | | QUAD(PED/ADOL/ADULT) | | | | ,PSKT or VIAL | | | + + + + | PNEUMOCOCCAL | 01/12/2015 | | | CONJUGATE 13-VALENT | | | | (PCV13) | | | + + + + | PNEUMOCOCCAL | 08/29/2005 | | | POLYSACCHARIDE | | | | 23-VALENT (PPSV23) | | | + + + + | TDAP, (ADOL/ADULT) | 05/11/2014 | | + + + + Family History + + +------+ + | Medical History | Relation | Name | Comments | + + +------+ + | * | Brother | x4 | 3 healthy | + + +------+ + | Diabetes | Brother | x4 | | + + +------+ + | Cancer | Father | | Prostate | + + +------+ + | Prostate cancer | Father | | | + + +------+ + | COPD | Mother | | | + + +------+ + | Diabetes | Mother | | | + + +------+ + | Diabetes, NIDDM | Mother | | | + + +------+ + | Heart failure | Mother | | | + + +------+ + | Hypertension | Mother | | | + + +------+ + | Kidney disease | Mother | | | + + +------+ + | Diabetes, NIDDM | Sister | | | + + +------+ + | Kidney disease | Sister | | | + + +------+ + | Schizophrenia | Sister | | | + + +------+ + | COPD | Sister | | | + + +------+ + | Heart attack | Sister | | | + + +------+ + | Heart failure | Sister | | | + + +------+ + | Diabetes | Sister | | | + + +------+ + | Hypertension | Sister | | | + + +------+ + + +------+ + + | Relation | Name | Status | Comments | + +------+ + + | Brother | x4 | Alive | | + +------+ + + | Father | | | | + +------+ + + | Father | | | | + +------+ + + | Mother | | Alive | | + +------+ + + | Mother | | | | + +------+ + + | Sister | | Alive | | + +------+ + + | Sister | | Alive | | + +------+ + + | Sister | | | | + +------+ + + | Sister | | | | + +------+ + + | Sister | | Alive | | + +------+ + + Social History + + + [...] on file | | + + + Last Filed Vital Signs + + + + + | Vital Sign | Reading | Time Taken | Comments | + + + + + | Blood Pressure | 130/85 | 02/20/2017 3:41 PM | | | | | PDT | | + + + + + | Pulse | 73 | 02/20/2017 3:41 PM | | | | | PDT | | + + + + + | Temperature | 35.7 C (96.3 F) | 02/20/2017 3:41 PM | | | | | PDT | | + + + + + [...] + + + + | Weight | 142.2 kg (313 lb 6.4 | 02/20/2017 3:41 PM | | | | oz) | PDT | | + + + + + | Height | 165.1 cm (5' 5") | 02/20/2017 3:41 PM | | | | | PDT | | + + + + + | Body Mass Index | 52.15 | 02/20/2017 3:41 PM | | | | | PDT | | + + + + + Plan of Treatment + + + + + | Health Maintenance | Due Date | Last | Comments | | | | Done | | + + + + + | Cervical Cancer | | | | | Screening (Pap) | 2 | | | + + + + + | Vaccine: Zoster (1 | | | | | of 2) | 2 | | | + + + + + | Breast Cancer | | | | | Screening | 7 | | | + + + + + | Vaccine: Influenza | | 02/15/20 | | | (#1) | 0 | 16, | | | | | 07/22/19 | | | | | 16 | | + + + + + | Vaccine: | | 05/11/19 | | | Dtap/Tdap/Td (2 - | 5 | 15 | | | Td) | | | | + + + + + Results Not on filefrom Last 3 Months Insurance + +--------+ +--------+ +---------+--------+ | Payer | Benefi | Subscriber | Effect | Phone | Address | Type | | | t Plan | ID | jacklyn | | | | | | / | | Dates | | | | | | Group | | | | | | + +--------+ +--------+ +---------+--------+ | MEDICARE | MEDICA | [id number] | 06/08/19 | [phone] | | Medica | | | RE | | 08-Pre | 5 | | re | | | PART A | | sent | | | | | | AND B | | | | | | + +--------+ +--------+ +---------+--------+ | | TRICAR | [id number] | | [phone] | | Indemn | | | E FOR | | 016-Pr | 0 | | ity | | | LIFE | | esent | | | | + +--------+ +--------+ +---------+--------+ + +--------+ +--------+ + + | Guarantor Name | Accoun | Relation to | Date | Phone | Billing Address | | | t Type | Patient | of | | | | | | | | | | + +--------+ +--------+ + + | Ivana Robb | Person | Self [birth year] | [address] | | | al/Fam | | 1961 | [phone] | [place] [address] | | | emanuel | | | 3 (Home) | | + +--------+ +--------+ + + | Ivana Robb | Person | Self [birth year] | [address] | | | al/Fam | | 1961 | [phone] | [place] [address] | | | emanuel | | | 3 (Home) | | + +--------+ +--------+ + + Advance Directives + + + + + | Type | Date Recorded | Patient | Explanation | | | | Solution Make Up Operator | | + + + + + | Power of | | | | | [employer] Transporter | | | | + + + + + | Advance | | | | | Directive | | | | + + + + +
--- OUTSIDE RECORDS SUMMARY | ~2020-01-06 | XMS | Encounter Summary ---
Demographics + + + | Address | [address] | | | [place] [address] | + + + | Home Phone [...] + + + | Author | [facility] | | | and Shajiana | + + + | Organization | [facility] | | | and [...] Team Providers + +------+ + | Care Ornamental Metal Worker Helper Name | Role | Phone | + +------+ + | Irving Norris MD | PCP | | + +------+ + Reason for Visit + + + | Reason | Comments | + + + | Pulmonary Disease | Consult - RLD/DAWOOD | | Appointment | | + + + Evaluate & Treat (Routine) +--------+--------+ + + + + | Status | Reason | Specialty | Diagnoses / | Referred By | Referred To | | | | | Procedures | Contact | Contact | +--------+--------+ + + + + | Closed | | Pulmonology | Diagnoses | Myrna, | [place], | | | | | Other | Irving Martin, | MD Harshal | | | | | disorders of | MD [address] | [address] | | | | | lung | [address] | [place], | | | | | Procedures | [place], | [place] [address] | | | | | [place] OFFICE | [place] [address] | Phone: | | | | | OUTPATIENT | Phone: | [phone] | | | | | NEW 30 | [phone] | Fax: | | | | | MINUTES | Fax: | [phone] | | | | | | [phone] | | +--------+--------+ + + + + Encounter Details +--------+---------+ + + + | Date | Type | Department | Care Team | Description | +--------+---------+ + + + | 03/14/ | Office | [facility] | Harshal Vincent, | Moderate persistent | | 2016 | Visit | PULMONARY [address] | MD [address] | asthma without | | | | [place], | [place], [place] | complication | | | | [place] [address] | [address] | (Primary Dx); | | | | [phone] | | Restrictive lung | | | | | | disease secondary to | | | | | | obesity; DAWOOD on | | | | | | CPAP | +--------+---------+ + + + Social History + +-------+ [...] + + + | Blood Pressure | 116/80 | 03/14/2016 2:36 PM | | | | | PST | | + + + + + | Pulse | 74 | 03/14/2016 2:36 PM | | | | | PST | | + + + + + | Temperature | - | - | | + + + + + | Respiratory Rate | - | - | | + + + + + | Oxygen Saturation | 93% | 03/14/2016 2:36 PM | | | | | PST | | + + + + + | Inhaled Oxygen | - | - | | | Concentration | | | | + + + + + | Weight | 147.4 kg (325 lb) | 03/14/2016 2:36 PM | | | | | PST | | + + + + + | Height | 165.1 cm (5' 5") | 03/14/2016 2:36 PM | | | | | PST | | + + + + + | Body Mass Index | 54.08 | 03/14/2016 2:36 PM | | | | | PST | | + + + + + documented in this encounter Patient Instructions Patient Instructions Harshal Vincent MD - 03/14/2016 3:44 PM PST Asthma (Adult) Asthma is a disease where the medium and small air passages within the lung go into spasm and restrict the flow of air. Inflammation and swelling of the airways cause further restri ction. During an acute asthma attack, these factors cause difficulty breathing, wheezing, co ugh and chest tightness. An asthma attack can be triggered by many things. Common triggers include infections such a s the common cold, bronchitis, pneumonia. Irritants such as smoke or pollutants in the air, emotional upset, and exercise can also trigger an attack. Inmany adults with asthma, aller gies todust, mold, pollen and animal dander can cause an asthma attack. Skipping doses of daily asthma medicine can also bring on an asthma attack. Asthma can be controlled using theproper medicines prescribed by your healthcare provider and avoiding exposure to known triggers including allergens and irritants. Home care Take prescribed medicine exactly at the times advised. If you need medicine such as from a hand held inhaler or aerosol breathing machine more than every 4 hours, contact your [facility] or seek immediate medical attention. If prescribed an antibiotic or predniso ne, take all of the medicine as prescribed, even if you are feeling better after a few days. Do not smoke. Avoid being exposed to the smoke of others. Some people with asthma have worsening of their symptoms when they take aspirin and non- steroidal or fever-reducing medicines like ibuprofen and naproxen. Talk to your healthcare p luis if you think this may apply to you. Follow-up care Follow up with your healthcare provider, or as advised. Always bring all of your current me dicines to any appointments with your healthcare provider. Also bring a complete list of med ications eventhose not taken for asthma. If you do not already have one, talk to your the [facility] provider about developing a personalized "Asthma Action Plan." A pneumococcal (pneumonia)vaccine and yearly flu shot (every fall) are recommended. Ask y our doctor about this. When to seek medical advice Call your healthcare provider right away if any of these occur: Increased wheezing or shortness of breath Need to use your inhalers more often than usual without relief Fever of 100.4F (38C) or higher, or as directed by your healthcare provider Coughing up lots of dark-colored or bloody sputum (mucus) Chest pain with each breath If you use a peak flow meter as part of an Asthma Action Plan, and you are still in the yellow zone (50% to 80%) 15 minutes after using inhaler medicine. Call 911 Call 911 if any of the following occur Trouble walking or talking because of shortness of breath If you use a peak flow meter as part of an Asthma Action Plan andyou are still in the red zone (less than 50%) 15 minutes after using inhaler medicine Lips or fingernails turning collazo or blue [id number] [employer]. [address] [place] [address]. All righ ts reserved. This information is not intended as a substitute for professional medical care. Always follow your healthcare professional's instructions. documented in this encounter Progress Notes Harshal Vincent MD - 03/14/2016 3:08 PM PSTFormatting of this note might be different f rom the original. Pulmonary Consult Note 03/14/2016 HPI Ivana Robb is a 55 y.o. female patient of Irving Norris MD here today for evaluat ion of restrictive lung disease and obstructive sleep apnea. Ivana states that she was diagnosed with COPD in 2005. She apparently smoked up to 3 packs of cigarettes a day for 20 years quitting in 2000. Fluctuation of the patient's symptoms was reported. Ivana frequently had rhonchi to/pneumo nimisha symptoms requiring antibiotics. In 2005 she received a Pneumovax which seemed to signif icantly impact the frequency of pulmonary infections. The patient typically would use Ventolin alone. Of late her Ventolin use was up to 12 14 times a day. 28 days ago the patient began a sample of Breo. Shortly thereafter her albut alma use decreased to her current levels. Triggers of asthma-like symptoms include upper respiratory tract infections. Ivana are able to walk several 100 yards at their own pace on level ground before developin g shortness of breath. The distance walked is predominately limited by fatigue. One year ago , they feel that they could walk 100 yards. Triggers for their shortness of breath include exertion. Relieving factors include rest. The patient does not exercise regularly. They are not enrolled in pulmonary rehabilitation. They have not completed pulmonary rehabilitation in the past. She does not cough chronically, and does not produce mucous. They have not had hemoptysis i n the last 6 months. Treatments that they have been used to this point include Breo. Currently they use Breo.. Olena israel do feel that these treatments are helping their breathing. Currently they are using the ir short acting inhaler, Ventolin, 0-2 times a day. They have not recently had to be hospitalized for breathing issues in the past. Ivana has not required intubation in the past. They have not had to go to the emergency room in the year related to a breathing problem. They have had 0 exacerbations in the past year requi ring treatment with prednisone and 0 treatments with antibiotics. Ivana has been evaluated for nocturnal oxygen and does not qualify for use. The patient's history of obstructive sleep apnea goes back quite some time. She was appare ntly prescribed a CPAP machine by a retiring psychiatrist without a corresponding polysomnog ella. Several years ago polysomnogram was performed in [place] in an attempt to qualify f or replacement CPAP equipment. The patient typically goes to bed at 10 PM and is asleep with CPAP and another 15 minutes. She awakens at 6 in the morning without the alarm clock. The patient wears CPAP on average 8 hours a night without issue. She uses a full face mask. Ivana is under the impression t hat her CPAP is set on an auto titrating mode with CPAP minimum of 4 and a CPAP maximum of 2 0. The patient believes her weight has increased 75 pounds since she began CPAP. Past Medical History: Past Medical History Diagnosis Date Hypertension COPD (chronic obstructive pulmonary disease) ([facility]) Obesity Sleep apnea CHF (congestive heart failure) ([facility]) Kidney failure Depression Arthritis Osteoarthritis Emphysema of lung (HCC) Chronic kidney disease Mitral regurgitation Restrictive lung disease Asthma Pneumonia Past Surgical History: Past Surgical History Procedure Laterality Date Appendectomy Cholecystectomy Total hip arthroplasty Foot surgery Tonsillectomy Shoulder surgery Family History: Family History Problem Relation Age of Onset Hypertension Mother Diabetes Mother Prostate cancer Father Heart attack Sister Social History: She reports that she quit smoking about 15 years ago. She started smoking about 36 years ag o. She has never used smokeless tobacco. She reports that she does not drink alcohol or use illicit drugs. Allergies: No Known Allergies Medications: Current outpatient [...] into the lungs Daily., Disp: , Rfl: busPIRone (BUSPAR) 7.5 MG tablet, Take one tablet twice daily, Disp: , Rfl: 0 furosemide (LASIX) 20 mg tablet, Take 20 mg by mouth Daily., Disp: , Rfl: lisinopril (PRINIVIL, ZESTRIL) 20 mg tablet, Take 20 mg by mouth Daily., Disp: , Rfl: sertraline (ZOLOFT) 100 mg tablet, Take 100 mg by mouth Daily., Disp: , Rfl: Immunizations: Immunization History Administered Date(s) Administered INFLUENZA, HIGH DOSE SEASONAL (ADULT) 02/15/2016 INFLUENZA, QUADRIVALENT PRESERVATIVE FREE (PED/ADOL/ADULT) 07/22/2015 PNEUMOCOCCAL CONJUGATE 13-VALENT (PCV13) 01/12/2015 PNEUMOCOCCAL POLYSACCHARIDE 23-VALENT (PPSV23) 08/29/2005 TDAP, (ADOL/ADULT) 05/11/2014 Review of Systems Constitutional: Denies fever, chills, sweats, fatigue/weakness, and unexpected weight cain ge. Sleep: Denies trouble sleeping, loud snoring, and excessive daytime sleepiness. Eyes: Denies vision change, and eye irritation. ENT: Denies earache, tinnitus, decreased hearing, nasal congestion, nosebleeds, sore throa t, and hoarseness. Resp: Denies hemoptysis or pleuritic chest pain. CV: Denies neck/chest/jaw pain with exertion, palpitations, lightheadedness, syncope, orth opnea, PND, peripheral edema, and claudication. GI: Denies trouble swallowing, heartburn, nausea, vomiting, abdominal pain, diarrhea,melen a, and hematochezia. Denies dysuria, hematuria, urinary frequency, difficulty emptying bladder, nocturia. Musculoskeletal: Denies joint pain/stiffness, joint swelling, muscle pain/cramps, muscle we akness. Derm: Denies rash, itching, dryness, and suspicious lesions. Neurologic: Denies frequent headaches, seizures, tremors, numbness or tingling in hands or feet, vertigo or difficulty walking in past 6 months. Psych Denies depression, anxiety, suicidal ideation. Endo Denies cold intolerance or heat intolerance. Heme Denies abnormal bruising, bleeding, and enlarged lymph nodes. Allergy Denies urticaria, allergic rash, hay fever Objective BP 116/80 mmHg | Pulse 74 | Ht 1.651 m (5' 5") | Wt 147.419 kg (325 lb) | BMI 54.08 kg/m2 | SpO2 93% | ? No General Appearance: Alert, cooperative, no distress, appears stated age. Head: Normocephalic, without obvious abnormality, atraumatic. Eyes: PERRL, conjunctiva/corneas clear. Ears: Normal external appearance, TM's not examined. Nose: Nares normal, septum midline, mucosa normal, no drainage or sinus tenderness. Throat: Lips, mucosa, and tongue normal; teeth and gums normal. MP 1. Narrow posterior ph arynx. . Neck: Supple, symmetrical, no adenopathy. neck circumference 18.5 inches Lungs: No accessory muscle use, breath sounds are clear to auscultation bilaterally, no w heezes, no crackles or rhonchi. No dullness to percussion. Chest Wall: No tenderness or deformity. Heart: Regular rate and rhythm, S1, S2 normal, no murmur, no rub or gallop Abdomen: Soft, non-tender. No hepatosplenomegaly. Extremities: Extremities normal, atraumatic, no cyanosis, clubbing. Edema no Pulses: Radial pulses 2+ and symmetric Skin: Warm and dry Lymph nodes: Cervical and supraclavicular nodes normal Neurologic: Gait normal Data: Chest x-ray(s) from 09/07/15 were reviewed today with the patient present. They show very mil d flattening of the diaphragms on the AP. Increased soft tissue. No pulmonary parenchymal abnormalities.. Orange sleepiness scale score of 11/24 Pulmonary function tests were performed on 08/14/15 and were reviewed and interpreted in clin ic today. They show postbronchodilator FEV1 of 1.34, 47% of predicted, forced vital capacit y of 2.12, 59% of predicted with an FEV1/FVC of 63%. Following inhalation of albuterol the patient's FEV1 dulce 320 mL or 30%. The total lung capacity was 5.29, 101% of predicted and the uncorrected DLCO 25.6, 86% of predicted. Irving Norris MD's notes were reviewed in clinic today. Assessment Ivana is a 55-year-old prior smoker who presents at the request of Irving Norris M.D. Ph D for pulmonary consultation regarding apparent restrictive pulmonary function tests and obs tructive sleep apnea. Over function tests from August 2015 are consistent with normal restrictive and obstructive changes. The overall extent of the abnormalities is moderate/severe. Given the patient's d ramatic response to Breo I suspect that her primary problem is that of asthma. Given that t here is no diffusion abnormality is unlikely that the patient has a pulmonary parenchymal pr oblem causing restrictive pulmonary function tests. The patient has issues with her insurance covering Breo. She was given the names of other long-acting beta agonist/inhaled corticosteroids to check for insurance coverage. These wou ld include Dulera, Symbicort and Advair. The patient appears to have obstructive sleep apnea based on her prior history. Her sympto ms appear well controlled with what sounds like auto titrating CPAP delivered via a full fac e mask. Ivana is not necessarily interested in obtaining a new CPAP machine. I have suggested the patient that we obtain a copy of her original polysomnogram/CPAP titra tion and a CPAP compliance report from her current CPAP machine. Plan 1. Patient to determine which inhaled corticosteroid/long-acting beta agonist is referred by her insurance. 2. A new prescription for this agent will be forwarded to her referred pharmacy. 3. Obtain a copy of original PSG/CPAP titration from [place]. 4. CPAP compliance download/auto titration report from local home medical company. 5. Pulmonary clinic follow-up appointment within the next 4 weeks. CC: Irving Norris MD documented in this encounter Plan of Treatment Not on filedocumented as of this encounter Procedures + +--------+ + + + | Procedure Name | Priori | Date/Time | Associated Diagnosis | Comments | | | ty | | | | + +--------+ + + + | IMAGING REPORT - | | 09/07/2015 | | Results for this | | EXTERNAL SCAN | | 12:00 AM | | procedure are in the | | | | PDT | | results section. | + +--------+ + + + | LABS - EXTERNAL SCAN | | 09/07/2015 | | Results for this | | | | 12:00 AM | | procedure are in the | | | | PDT | | results section. | + +--------+ + + + | ECG - EXTERNAL SCAN | | 09/07/2015 | | Results for this | | | | 12:00 AM | | procedure are in the | | | | PDT | | results section. | + +--------+ + + + | DIAGNOSTIC REPORT - | | 08/14/2015 | | Results for this | | EXTERNAL SCAN | | 12:00 AM | | procedure are in the | | | | PDT | | results section. | + +--------+ + + + documented in this encounter Results LABS - EXTERNAL SCAN (09/07/2015 12:00 AM PDT) + + + | Narrative | Performed At | + + + | Ordered by an | | | unspecified provider. | | + + + IMAGING REPORT - EXTERNAL SCAN (09/07/2015 12:00 AM PDT) + + + | Narrative | Performed At | + + + | Ordered by an | | | unspecified provider. | | + + + ECG - EXTERNAL SCAN (09/07/2015 12:00 AM PDT) + + + | Narrative | Performed At | + + + | Ordered by an | | | unspecified provider. | | + + + DIAGNOSTIC REPORT - EXTERNAL SCAN (08/14/2015 12:00 AM PDT) + + + | Narrative | Performed At | + + + | Ordered by an | | | unspecified provider. | | + + + documented in this encounter Visit Diagnoses + + | Diagnosis | + + | Moderate persistent asthma without complication - Primary Unspecified asthma | + + | Restrictive lung disease secondary to obesity Other diseases of lung, not elsewhere | | classified | + + | DAWOOD on CPAP Obstructive sleep apnea (adult) (pediatric) | + + documented in this encounter
--- OUTSIDE RECORDS SUMMARY | ~2020-01-06 | XMS | Encounter Summary ---
Demographics + + + | Address | [address] | | | [place] [address] | + + + | Home Phone | | + + + | Preferred Language | Unknown | + + + | Marital Status | Single | + + + | Yarsanism Affiliation | Unknown | + + + | Race | White | + + + | Ethnic Group | Not or | + + + Author + + + | Author | [facility] | | | and Shajiana | + + + | Organization | [facility] | | | [...] Team Providers + +------+ + | Care Spot Checker Name | Role | Phone | + +------+ + | Irving Norris MD | PCP | | + +------+ + Encounter Details +--------+ + + + + | Date | Type | Department | Care Team | Description | +--------+ + + + + | 02/06/ | Orders Only | [facility] | Conversion | | | 2016 | | NEPHROLOGY [place] | Transaction, | | | | | [address] | Provider Unknown | | | | | [address] [place] | [phone] | | | | | [address] | (Fax) | | | | | [phone] | | | +--------+ + + + [...] | + +--------+ + + + | EXTERNAL LAB: [facility] | Routin | 02/06/2017 | | Results for this | | | e | 9:22 AM | | procedure are in the | | | | PDT | | results section. | + +--------+ + + + | LIPID PANEL | Routin | 02/06/2017 | | Results for this | | | e | 9:22 AM | | procedure are in the | | | | PDT | | results section. | + +--------+ + + + | COMPREHENSIVE | Routin | 02/06/2017 | | Results for this | | METABOLIC PANEL | e | 9:22 AM | | procedure are in the | | | | PDT | | results section. | + +--------+ + + + documented in this encounter Results External Lab: [facility] (02/06/2017 9:22 AM PDT) + +-------+ + + + | Component | Value | Ref Range | Performed | Pathologist | | | | | At | Signature | + +-------+ + + + | WBC | 7.7 | 4.5 - 11.0 10 | EXTERNAL | | | | | | LAB | | + +-------+ + + + | Non- | 4.43 | 3.8 - 5.1 10 | EXTERNAL | | | Red Blood | | | LAB | | | Cells | | | | | | Counted | | | | | + +-------+ + + + | Hemoglobin | 13.6 | 12.0 - 16.0 | EXTERNAL | | | | | g/dL | LAB | | + +-------+ + + + | Hematocrit, | 41.5 | 35 - 45 % | EXTERNAL | | | POC | | | LAB | | + +-------+ + + + | MCV | 93.5 | 81 - 99 fL | EXTERNAL | | | | | | LAB | | + +-------+ + + + | MCH | 31 | 27 - 33 pg | EXTERNAL | | | | | | LAB | | + +-------+ + + + | MCHC | 33 | 30 - 36 g/dL | EXTERNAL | | | | | | LAB | | + +-------+ + + + | Platelet | 231 | 140 - 440 K/ L | EXTERNAL | | | Count | | | LAB | | | Plasma | | | | | + +-------+ + + + | RDW-CV | 13.5 | 10.5 - 15.0 % | EXTERNAL | | | | | | LAB | | + +-------+ + + + | MPV | | fL | EXTERNAL | | | | | | LAB | | + +-------+ + + + | Differentia | | | EXTERNAL | | | l Type | | | LAB | | + +-------+ + + + | % Segmented | | % | EXTERNAL | | | | | | LAB | | | Neutrophils | | | | | + +-------+ + + + | % | | % | EXTERNAL | | | Lymphocytes | | | LAB | | + +-------+ + + + | % Monocytes | | % | EXTERNAL | | | | | | LAB | | + +-------+ + + + | % | | % | EXTERNAL | | | Eosinophils | | | LAB | | + +-------+ + + + | % Basophils | | % | EXTERNAL | | | | | | LAB | | + +-------+ + + + | Absolute | | / L | EXTERNAL | | | Segmented | | | LAB | | | Neutrophils | | | | | + +-------+ + + + | Absolute | | / L | EXTERNAL | | | Lymphocytes | | | LAB | | + +-------+ + + + | Absolute | | / L | EXTERNAL | | | Monocytes | | | LAB | | + +-------+ + + + | Absolute | | / L | EXTERNAL | | | Eosinophils | | | LAB | | + +-------+ + + + | Absolute | | / L | EXTERNAL | | | Basophils | | | LAB | | + +-------+ + + + + + | Specimen | + + | Blood specimen | | (specimen) | + + + +---------+ + + | Performing | Address | City/State/Zipcode | Phone Number | | Organization | | | | + +---------+ + + | EXTERNAL LAB | | | | + +---------+ + + Lipid Panel (02/06/2017 9:22 AM PDT) + +---------+ + + + | Component | Value | Ref Range | Performed | Pathologist | | | | | At | Signature | + +---------+ + + + | Cholesterol | 159 | mg/dL | EXTERNAL | | | | | | LAB | | + +---------+ + + + | Triglycerid | 168 (A) | 30 - 150 mg/dL | EXTERNAL | | | es | | | LAB | | + +---------+ + + + | HDL | 45.6 | mg/dl | EXTERNAL | | | | | | LAB | | + +---------+ + + + | LDL, | 80 | mg/dL | EXTERNAL | | | Calculated | | | LAB | | + +---------+ + + + | LDl/HDL | | | EXTERNAL | | | Ratio | | | LAB | | + +---------+ + + + | Chol/HDL | 3.5 | | EXTERNAL | | | Ratio | | | LAB | | + +---------+ + + + | VLDL | 34 | 4 - 40 mg/dL | EXTERNAL | | | | | | LAB | | + +---------+ + + + | Non HDL | 113 | | EXTERNAL | | | Chol. | | | LAB | | | (LDL+VLDL) | | | | | + +---------+ + + + + + | Specimen | + + | Blood specimen | | (specimen) | + + + +---------+ + + | Performing | Address | City/State/Zipcode | Phone Number | | Organization | | | | + +---------+ + + | EXTERNAL LAB | | | | + +---------+ + + Comprehensive Metabolic Panel (02/06/2017 9:22 AM PDT) + +---------+ + + + | Component | Value | Ref Range | Performed | Pathologist | | | | | At | Signature | + +---------+ + + + | Glucose, | 102 (A) | 70 - 100 mg/dL | EXTERNAL | | | Fasting | | | LAB | | + +---------+ + + + | BUN | 16 | 6 - 23 mg/dL | EXTERNAL | | | | | | LAB | | + +---------+ + + + | Creatinine | 0.81 | 0.70 - 1.33 | EXTERNAL | | | | | mg/dL | LAB | | + +---------+ + + + | BUN/Creatin | 19.8 | 6.0 - 28.6 | EXTERNAL | | | ine Ratio | | | LAB | | + +---------+ + + + | Calcium | 9.4 | 8.4 - 10.2 | EXTERNAL | | | | | mg/dL | LAB | | + +---------+ + + + | Protein, | 6.7 | 6.0 - 8.0 g/dL | EXTERNAL | | | Total | | | LAB | | + +---------+ + + + | Albumin | 4.3 | 3.5 - 5.0 | EXTERNAL | | | | | | LAB | | + +---------+ + + + | Globulin | 2.4 | 1.8 - 3.5 | EXTERNAL | | | | | | LAB | | + +---------+ + + + | A/G Ratio | 1.8 | 1.1 - 2.4 | EXTERNAL | | | | | | LAB | | + +---------+ + + + | Bilirubin | 0.2 | 0.0 - 1.2 mg/dL | EXTERNAL | | | Total | | | LAB | | + +---------+ + + + | ALP, | 96 | 31 - 130 | EXTERNAL | | | External | | | LAB | | + +---------+ + + + | ALT | 14 | 7 - 52 U/L | EXTERNAL | | | | | | LAB | | + +---------+ + + + | AST | 13 | 13 - 39 U/L | EXTERNAL | | | | | | LAB | | + +---------+ + + + | Na | 142 | 132 - 143 | EXTERNAL | | | | | mmol/L | LAB | | + +---------+ + + + | K | 4.2 | 3.6 - 5.1 | EXTERNAL | | | | | mmol/L | LAB | | + +---------+ + + + | Cl | 104 | 95 - 112 mmol/L | EXTERNAL | | | | | | LAB | | + +---------+ + + + | CO2 | 26 | 19 - 31 mmol/L | EXTERNAL | | | | | | LAB | | + +---------+ + + + | Anion Gap | 16.2 | 7 - 21 mmol/L | EXTERNAL | | | | | | LAB | | + +---------+ + + + | Estimated | 73 | mg/dL | EXTERNAL | | | GFR | | | LAB | | + +---------+ + + + + + | Specimen | + + | Blood specimen | | (specimen) | + + + +---------+ + + | Performing | Address | City/State/Zipcode | Phone Number | | Organization | | | | + +---------+ + + | EXTERNAL LAB | | | | + +---------+ + + documented in this encounter Visit Diagnoses Not on filedocumented in this encounter"
--- OUTSIDE RECORDS SUMMARY | ~2020-01-06 | XMS | Encounter Summary ---
Demographics + + + | Address | [address] | | | [place] [address] | + + + | Home Phone | | + + + | Preferred Language | Unknown | + + + | Marital Status | Single | + + + | Sabianist Affiliation | Unknown | + + + | Race | White | + + + | Ethnic Group | Not or | + + + Author + + + | Author | [facility] | | | and Shajiana | + + + | Organization | [facility] | | | [...] Team Providers + +------+ + | Care Hospitalist Medical Director Name | Role | Phone | + +------+ + | Irving Norris MD | PCP | | + +------+ + Encounter Details +--------+ + + + + | Date | Type | Department | Care Team | Description | +--------+ + + + + | 10/18/ | Orders Only | [facility] | Irving Norris | | | 2016 | | CONVERSION [address] | MD [address] | | | | | [place] | [address] | | | | | [place] | [place] [address] | | | | | [address] | [phone] | | | | | [phone] | | | +--------+ + + + + Social History + +-------+ +--------+------+ | Tobacco Use | Types | Packs/Day | Years | Date | | | | | Used | | + +-------+ +--------+------+ | Never Assessed | | | | | + +-------+ +--------+------+ + + + | Sex Assigned at [...] | + +--------+ + + + | ECHO INTERPRETATION | Routin | 10/19/2015 | | Results for this | | OF OUTSIDE FILMS | e | 12:11 PM | | procedure are in the | | | | PDT | | results section. | + +--------+ + + + documented in this encounter Results ECHO Interpretation of Outside Films (10/19/2015 12:11 PM PDT) + + | Specimen | + + | | + + + + + | Impressions | Performed At | + + + | 1. This was a technically difficult study with suboptimal views. 2. | | | Overall left ventricular systolic function is normal with, an EF | | | between 60 - 65 %. 3. There is trace mitral regurgitation. 4. The | | | right ventricular systolic pressure (pulmonary artery systolic | | | pressure), as measured by Doppler, is 27.89mmHg. | | + + + + + + | Narrative | Performed At | + + + | Patient Name: Ivana Robb Date of : 1960 | | | Performing Physician: Libia Lacey MD | | | | | | INDICATIONS CHF CONCLUSIONS 1. This | | | was a technically difficult study with suboptimal views. 2. Overall | | | left ventricular systolic function is normal with, an EF between 60 - | | | 65 %. 3. There is trace mitral regurgitation. 4. The right | | | ventricular systolic pressure (pulmonary artery systolic pressure), as | | | measured by Doppler, is 27.89mmHg. FINDINGS -------- ECG | | | rhythm: Sinus rhythm. Study: A 2-dimensional transthoracic | | | echocardiogram with m-mode, spectral and color flow Doppler was | | | perfomed. Study: This was a technically difficult study with | | | suboptimal views. Left Ventricle: Overall left ventricular systolic | | | function is normal with, an EF between 60 - 65 %. Left Ventricle: The | | | left ventricle cavity size is normal. Left Ventricle: Left | | | ventricular wall thickness is normal. Left Ventricle: The diastolic | | | filling pattern is normal for the age of the patient. Right | | | Ventricle: The right ventricle is normal in size. Left Atrium: The | | | left atrium is mildly dilated. Right Atrium: The right atrial size is | | | normal. Aortic Valve: The aortic valve was not well visualized. | | | Aortic Valve: There is no evidence of aortic regurgitation. Aortic | | | Valve: There is no evidence of aortic stenosis. Mitral Valve: The | | | mitral valve is normal. Mitral Valve: There is trace mitral | | | regurgitation. Tricuspid Valve: The tricuspid valve was not well | | | visualized. Tricuspid Valve: Trace tricuspid regurgitation present. | | | Tricuspid Valve: The right ventricular systolic pressure (pulmonary | | | artery systolic pressure), as measured by Doppler, is 27.89mmHg. | | | Pulmonic Valve: The pulmonic valve was not well visualized. Pulmonic | | | Valve: Trace pulmonic regurgitation. Pericardium: There is no | | | pericardial effusion. Mass: No mass visualized Thrombus: No clot | | | visualized Thrombus: No vegetation visualized. MEASUREMENTS | | | Ao asc: 3.11 cm IVC: 1.42 cm LA Diam: 4.09 | | | cm LA Major: 4.83 cm EDV(Teich): 96.98 ml IVSd: 1.12 cm | | | LVIDd: 4.59 cm LVPWd: 0.78 cm LVOT Area: 3.29 cm2 LVOT | | | Diam: 2.04 cm %FS: 31.45 % EF(Teich): 59.40 % ESV(Teich): | | | 39.36 ml LVIDs: 3.14 cm SV(Teich): 57.61 ml RA Major: | | | 4.97 cm RVIDd: 3.27 cm LVEF MOD A2C: 73.57 % SV MOD A2C: | | | 66.77 ml LVEF MOD A4C: 61.90 % SV MOD A4C: 57.27 ml EF | | | Biplane: 68.43 % LVEDV MOD BP: 95.29 ml LVESV MOD BP: 30.08 | | | ml LVEDV MOD A2C: 90.76 ml LVLd A2C: 7.73 cm LVEDV MOD A4C: | | | 92.51 ml LVLd A4C: 8.40 cm LVESV MOD A2C: 23.98 ml LVLs | | | A2C: 6.32 cm LVESV MOD A4C: 35.24 ml LVLs A4C: 6.86 cm | | | LAESV(A-L): 53.44 ml LAESV Index (A-L): 22.26 ml/m2 LAAs A2C: | | | 18.98 cm2 LAESV A-L A2C: 64.61 ml LALs A2C: 4.73 cm LAAs | | | A4C: 15.70 cm2 LAESV A-L A4C: 40.17 ml LALs A4C: 5.21 cm | | | AV maxP.75 mmHg AV meanP.31 mmHg AV Vmax: 1.63 m/s | | | AV Vmean: 1.10 m/s AV VTI: 33.74 cm DENNIS Vmax: 2.21 cm2 | | | DENNIS (VTI): 2.19 cm2 AVAI (Vmax): 0.00 cm2/m2 AVAI (VTI): | | | 0.00 cm2/m2 LVOT maxP.85 mmHg LVOT meanP.99 mmHg LVSI | | | Dopp: 30.81 ml/m2 LVSV Dopp: 73.96 ml LVOT Vmax: 1.10 m/s | | | LVOT Vmean: 0.82 m/s LVOT VTI: 22.46 cm MV A Fran: 1.00 m/s | | | MV DecT: 220.01 ms MV E Fran: 1.13 m/s MV E/A Ratio: 1.12 | | | MV PHT: 63.80 ms MVA By PHT: 3.44 cm2 Septal e': 0.09 m/s | | | Septal E/e': 12.39 Lateral e': 0.10 m/s Lateral E/e': | | | 11.15 PV maxP.60 mmHg PV meanP.55 mmHg PV Vmax: | | | 1.07 m/s PV Vmean: 0.74 m/s PV VTI: 24.53 cm RAP: 5 mmHg | | | RVSP: 27.88 mmHg TR maxP.88 mmHg TR Vmax: 2.39 m/s | | | Form Stripper: DBS Authenticated by: Libia Lacey MD Report | | | Date/Time: 10-20-2015 19:24:45 | | + + + + + | Procedure Note | + + | Chiki, Rad Conversion - 12/27/2018 10:30 PM PDT Patient Name: Liliana Robb of | | : 1960 Performing Physician: Libia Lacey | | INDICATIONS C | | HF CONCLUSIONS 1. This was a technically difficult study with suboptimal | | views.2. Overall left ventricular systolic function is normal with, an EF between 60 - | | 65 %.3. There is trace mitral regurgitation.4. The right ventricular systolic pressure | | (pulmonary artery systolic pressure), as measured by Doppler, is 27.89mmHg. | | FINDINGS--------ECG rhythm: Sinus rhythm.Study: A 2-dimensional transthoracic | | echocardiogram with m-mode, spectral and color flow Doppler was perfomed.Study: This was | | a technically difficult study with suboptimal views.Left Ventricle: Overall left | | ventricular systolic function is normal with, an EF between 60 - 65 %.Left Ventricle: | | The left ventricle cavity size is normal.Left Ventricle: Left ventricular wall thickness | | is normal.Left Ventricle: The diastolic filling pattern is normal for the age of the | | patient.Right Ventricle: The right ventricle is normal in size.Left Atrium: The left | | atrium is mildly dilated.Right Atrium: The right atrial size is normal.Aortic Valve: The | | aortic valve was not well visualized.Aortic Valve: There is no evidence of aortic | | regurgitation.Aortic Valve: There is no evidence of aortic stenosis.Mitral Valve: The | | mitral valve is normal.Mitral Valve: There is trace mitral regurgitation.Tricuspid | | Valve: The tricuspid valve was not well visualized.Tricuspid Valve: Trace tricuspid | | regurgitation present.Tricuspid Valve: The right ventricular systolic pressure | | (pulmonary artery systolic pressure), as measured by Doppler, is 27.89mmHg.Pulmonic | | Valve: The pulmonic valve was not well visualized.Pulmonic Valve: Trace pulmonic | | regurgitation.Pericardium: There is no pericardial effusion.Mass: No mass | | visualizedThrombus: No clot visualizedThrombus: No vegetation visualized. | | MEASUREMENTS Ao asc: 3.11 cmIVC: 1.42 cmLA Diam: 4.09 cmLA Major: | | 4.83 cmEDV(Teich): 96.98 mlIVSd: 1.12 cmLVIDd: 4.59 cmLVPWd: 0.78 cmLVOT Area: | | 3.29 [id number] Diam: 2.04 cm%FS: 31.45 %EF(Teich): 59.40 %ESV(Teich): 39.36 | | mlLVIDs: 3.14 cmSV(Teich): 57.61 mlRA Major: 4.97 cmRVIDd: 3.27 cmLVEF MOD A2C: | | 73.57 %SV MOD A2C: 66.77 mlLVEF MOD A4C: 61.90 %SV MOD A4C: 57.27 mlEF Biplane: | | 68.43 %LVEDV MOD BP: 95.29 mlLVESV MOD BP: 30.08 mlLVEDV MOD A2C: 90.76 mlLVLd | | A2C: 7.73 cmLVEDV MOD A4C: 92.51 mlLVLd A4C: 8.40 cmLVESV MOD A2C: 23.98 mlLVLs | | A2C: 6.32 cmLVESV MOD A4C: 35.24 mlLVLs A4C: 6.86 cmLAESV(A-L): 53.44 mlLAESV | | Index (A-L): 22.26 ml/m2LAAs A2C: 18.98 [id number] A-L A2C: 64.61 mlLALs A2C: 4.73 | | cmLAAs A4C: 15.70 [id number] A-L A4C: 40.17 mlLALs A4C: 5.21 cmAV maxP.75 | | mmHgAV meanP.31 mmHgAV Vmax: 1.63 m/Karina Vmean: 1.10 m/Karina VTI: 33.74 cmAVA | | Vmax: 2.21 cm2AVA (VTI): 2.19 dw3BRQC (Vmax): 0.00 cm2/m2AVAI (VTI): 0.00 | | cm2/m2LVOT maxP.85 mmHgLVOT meanP.99 mmHgLVSI Dopp: 30.81 ml/m2LVSV Dopp: | | 73.96 mlLVOT Vmax: 1.10 m/sLVOT Vmean: 0.82 m/sLVOT VTI: 22.46 cmMV A Fran: | | 1.00 m/sMV DecT: 220.01 msMV E Fran: 1.13 m/sMV E/A Ratio: 1.12MV PHT: 63.80 | | msMVA By PHT: 3.44 vg4Rhtlno e': 0.09 m/sSeptal E/e': 12.39Lateral e': 0.10 | | m/sLateral E/e': 11.15PV maxP.60 mmHgPV meanP.55 mmHgPV Vmax: 1.07 m/sPV | | Vmean: 0.74 m/sPV VTI: 24.53 cmRAP: 5 mmHgRVSP: 27.88 mmHgTR maxP.88 | | mmHgTR Vmax: 2.39 m/s Form Stripper: DBSAuthenticated by: Libia Villafana | | Date/Time: 10-20-2015 19:24:45 IMPRESSION: 1. This was a technically difficult study | | with suboptimal views.2. Overall left ventricular systolic function is normal with, an | | EF between 60 - 65 %.3. There is trace mitral regurgitation.4. The right ventricular | | systolic pressure (pulmonary artery systolic pressure), as measured by Doppler, is | | 27.89mmHg. | |Ao asc: 3.11 cm | |IVC: 1.42 cm | |LA Diam: 4.09 cm | |LA Major: 4.83 cm | |EDV(Teich): 96.98 ml | |IVSd: 1.12 cm | |LVIDd: 4.59 cm | |LVPWd: 0.78 cm | |LVOT Area: 3.29 cm2 | |LVOT Diam: 2.04 cm | |%FS: 31.45 % | |EF(Teich): 59.40 % | |ESV(Teich): 39.36 ml | |LVIDs: 3.14 cm | |SV(Teich): 57.61 ml | |RA Major: 4.97 cm | |RVIDd: 3.27 cm | |LVEF MOD A2C: 73.57 % | |SV MOD A2C: 66.77 ml | |LVEF MOD A4C: 61.90 % | |SV MOD A4C: 57.27 ml | |EF Biplane: 68.43 % | |LVEDV MOD BP: 95.29 ml | |LVESV MOD BP: 30.08 ml | |LVEDV MOD A2C: 90.76 ml | |LVLd A2C: 7.73 cm | |LVEDV MOD A4C: 92.51 ml | |LVLd A4C: 8.40 cm | |LVESV MOD A2C: 23.98 ml | |LVLs A2C: 6.32 cm | |LVESV MOD A4C: 35.24 ml | |LVLs A4C: 6.86 cm | |LAESV(A-L): 53.44 ml | |LAESV Index (A-L): 22.26 ml/m2 | |LAAs A2C: 18.98 cm2 | |LAESV A-L A2C: 64.61 ml | |LALs A2C: 4.73 cm | |LAAs A4C: 15.70 cm2 | |LAESV A-L A4C: 40.17 ml | |LALs A4C: 5.21 cm | |AV maxP.75 mmHg | |AV meanP.31 mmHg | |AV Vmax: 1.63 m/s | |AV Vmean: 1.10 m/s | |AV VTI: 33.74 cm | |DENNIS Vmax: 2.21 cm2 | |DENNIS (VTI): 2.19 cm2 | |AVAI (Vmax): 0.00 cm2/m2 | |AVAI (VTI): 0.00 cm2/m2 | |LVOT maxP.85 mmHg | |LVOT meanP.99 mmHg | |LVSI Dopp: 30.81 ml/m2 | |LVSV Dopp: 73.96 ml | |LVOT Vmax: 1.10 m/s | |LVOT Vmean: 0.82 m/s | |LVOT VTI: 22.46 cm | |MV A Fran: 1.00 m/s | |MV DecT: 220.01 ms | |MV E Fran: 1.13 m/s | |MV E/A Ratio: 1.12 | |MV PHT: 63.80 ms | |MVA By PHT: 3.44 cm2 | |Septal e': 0.09 m/s | |Septal E/e': 12.39 | |Lateral e': 0.10 m/s | |Lateral E/e': 11.15 | |PV maxP.60 mmHg | |PV meanP.55 mmHg | |PV Vmax: 1.07 m/s | |PV Vmean: 0.74 m/s | |PV VTI: 24.53 cm | |RAP: 5 mmHg | |RVSP: 27.88 mmHg | |TR maxP.88 mmHg | |TR Vmax: 2.39 m/s | | | |Form Stripper: DBS | |Authenticated by: Libia Lacey MD | |Report Date/Time: 10-20-2015 19:24:45 | | | |IMPRESSION: | |1. This was a technically difficult study with suboptimal views. | |2. Overall left ventricular systolic function is normal with, an EF between 60 - 65 %. | |3. There is trace mitral regurgitation. | |4. The right ventricular systolic pressure (pulmonary artery systolic pressure), as measure d by Doppler, is 27.89mmHg. | + + documented in this encounter Visit Diagnoses Not on filedocumented in this encounter"
--- OUTSIDE RECORDS SUMMARY | ~2020-01-06 | XMS | Encounter Summary ---
Demographics + + + | Address | [address] | | | [place] [address] | + + + | Home Phone | | + + + | Preferred Language | Unknown | + + + | Marital Status | Single | + + + | Christianity Affiliation | Unknown | + + + | Race | White | + + + | Ethnic Group | Not or | + + + Author + + + | Author | [facility] | | | and Shajiana | + + + | Organization | [facility] | | [...] Team Providers + +------+ + | Care Hat Forming Machine Feeder Name | Role | Phone | + +------+ + | Irving Norris MD | PCP | | + +------+ + Encounter Details +--------+ + + + + | Date | Type | Department | Care Team | Description | +--------+ + + + + | 11/16/ | Hospital | [facility] | Conversion | Pain | | 2017 | Encounter | CONVERSION DEP [address] | Transaction, | | | | | [place] | Provider Unknown | | | | | [place] | [phone] | | | | | [phone] | | | | | | [phone] | | | +--------+ + + + [...] + + documented as of this encounter Medications at Time of Discharge + + + +---------+ + + | Medication | Sig | Dispensed | Refills | Start | End Date | | | | | | Date | | + + + +---------+ + + | acetaminophen | Take 2,000 mg by | | 0 | | | | (TYLENOL) 500 mg | mouth Daily. | | | | | | tablet | | | | | | + + + +---------+ + + | albuterol | Inhale 2 puffs into | | 0 | | | | (VENTOLIN HFA) 90 | the lungs every 4 | | | | | | mcg/puff inhaler | hours as needed for | | | | | | | Wheezing. | | | | | + + + +---------+ + + | amLODIPine | Take one tablet | | 0 | 10/10/20 | | | (NORVASC) 5 mg | daily | | | 16 | | | tablet | | | | | | + + + +---------+ + + | BREO ELLIPTA | Inhale 1 puff into | | 0 | | | | 100-25 MCG/INH | the lungs Daily. | | | | | | inhaler | | | | | | + + + +---------+ + + | furosemide (LASIX) | Take 20 mg by mouth | | 0 | | | | 20 mg tablet | Daily. | | | | | + + + +---------+ + + | lisinopril | Take 20 mg by mouth | | 0 | | | | (PRINIVIL, ZESTRIL) | Daily. | | | | | | 20 mg tablet | | | | | | + + + +---------+ + + | sertraline | Take 100 mg by mouth | | 0 | | | | (ZOLOFT) 100 mg | Daily. | | | | | | tablet | | | | | | + + + +---------+ + + documented as of this encounter Plan of Treatment Not on filedocumented as of this encounter Procedures + +--------+ + + + | Procedure Name | Priori | Date/Time | Associated Diagnosis | Comments | | | ty | | | | + +--------+ + + + | NM MYOCARDIAL | Routin | 11/15/2017 | | Results for this | | PERFUSION SPECT | e | 3:13 AM | | procedure are in the | | STRESS | | PDT | | results section. | + +--------+ + + + documented in this encounter Results NM Myocardial Perfusion SPECT Stress (11/15/2017 3:13 AM PDT) + + | Specimen | + + | | + + + + + | Narrative | Performed At | + + + | This is a non-reportable procedure without a radiologist report and | | | is used for image storage only | | + + + + + | Procedure Note | + + | Kausihk Monet - 12/19/2018 1:19 PM PDT This is a non-reportable procedure | | without a radiologist report and isused for image storage only | + + documented in this encounter Visit Diagnoses + + | Diagnosis | + + | Pain Generalized pain | + + documented in this encounter"
--- OUTSIDE RECORDS SUMMARY | ~2020-01-06 | XMS | Encounter Summary ---
Demographics + + + | Address | [address] | | | [place] [address] | + + + | Home Phone | | + + + | Preferred Language | Unknown | + + + | Marital Status | Single | + + + | Cheondoism Affiliation | Unknown | + + + | Race | White | + + + | Ethnic Group | Not or | + + + Author + + + | Author | [facility] | | | and Shajiana | + + + | Organization | [facility] | | | [...] Team Providers + +------+ + | Care Clinical Rehabilitation Specialist Name | Role | Phone | + +------+ + | Irving Norris MD | PCP | | + +------+ + Encounter Details +--------+ + + + + | Date | Type | Department | Care Team | Description | +--------+ + + + + | 12/03/ | Abstract | [facility] [place] | [place], | | | 2015 | | PULMONARY [address] | | | | | [place], | [place] | | | | | [place] [address] | [address] | | | | | [phone] | | | +--------+ + + + [...]
--- OUTSIDE RECORDS SUMMARY | ~2020-01-06 | XMS | Encounter Summary ---
Demographics + + + | Address | [address] | | | [place] [address] | + + + | Home Phone | | + + + | Preferred Language | Unknown | + + + | Marital Status | Single | + + + | Bahai Affiliation | Unknown | + + + | Race | White | + + + | Ethnic Group | Not or | + + + Author + + + | Author | [facility] | | | and Shajiana | + + + | Organization | [facility] | | | [...] Team Providers + +------+ + | Care Olive Packer Name | Role | Phone | + +------+ + | Irving Norris MD | PCP | | + +------+ + Encounter Details +--------+ + + + + | Date | Type | Department | Care Team | Description | +--------+ + + + + | 12/17/ | Orders Only | [facility] | Provider, | | | 2019 | | [facility] | MD [address] | | | | | CONVERSION [address] | [place] | | | | | [address] [place], [place] | [place] [address] | | | | | [address] | | | | | | [phone] | | | +--------+ + + + [...]
--- OUTSIDE RECORDS SUMMARY | ~2020-01-06 | XMS | Encounter Summary ---
Demographics + + + | Address | [address] | | | [place] [address] | + + + | Home Phone | | + + + | Preferred Language | Unknown | + + + | Marital Status | Single | + + + | Spiritism Affiliation | Unknown | + + + | Race | White | + + + | Ethnic Group | Not or | + + + Author + + + | Author | [facility] | | | and Shajiana | + + + | Organization | [facility] | | [...] Team Providers + +------+ + | Care Application Software Developer Name | Role | Phone | + +------+ + | Irving Norris MD | PCP | | + +------+ + Encounter Details +--------+ + + + + | Date | Type | Department | Care Team | Description | +--------+ + + + + | 08/22/ | Orders Only | [facility] | Conversion | | | 2016 | | NEPHROLOGY [place] | Transaction, | | | | | [address] | Provider Unknown | | | | | [address] [place] | [phone] | | | | | [phone] | (Fax) | | | | | [phone] | | | +--------+ + + + [...] +--------+ + + + | EXTERNAL LAB: CBC | Routin | 08/22/2016 | | Results for this | | | e | 11:18 AM | | procedure are in the | | | | PDT | | results section. | + +--------+ + + + | LIPID PANEL | Routin | 08/22/2016 | | Results for this | | | e | 11:18 AM | | procedure are in the | | | | PDT | | results section. | + +--------+ + + + | TSH | Routin | 08/22/2016 | | Results for this | | | e | 11:18 AM | | procedure are in the | | | | PDT | | results section. | + +--------+ + + + | COMPREHENSIVE | Routin | 08/22/2016 | | Results for this | | METABOLIC PANEL | e | 11:18 AM | | procedure are in the | | | | PDT | | results section. | + +--------+ + + + documented in this encounter Results External Lab: CBC (08/22/2016 11:18 AM PDT) + +-------+ + + + | Component | Value | Ref Range | Performed | Pathologist | | | | | At | Signature | + +-------+ + + + | WBC | 6.9 | 4.5 - 11.0 10 | EXTERNAL | | | | | | LAB | | + +-------+ + + + | Non- | 4.88 | 3.8 - 5.1 10 | EXTERNAL | | | Red Blood | | | LAB | | | Cells | | | | | | Counted | | | | | + +-------+ + + + | Hemoglobin | 14.6 | 12.0 - 16.0 | EXTERNAL | | | | | g/dL | LAB | | + +-------+ + + + | Hematocrit, | 44.7 | 35 - 45 % | EXTERNAL | | | POC | | | LAB | | + +-------+ + + + | MCV | 91.7 | 81 - 99 fL | EXTERNAL | | | | | | LAB | | + +-------+ + + + | MCH | 30 | 27 - 33 | EXTERNAL | | | | | | LAB | | + +-------+ + + + | MCHC | 33 | 30 - 36 g/dL | EXTERNAL | | | | | | LAB | | + +-------+ + + + | Platelet | 255 | 140 - 440 K/ L | EXTERNAL | | | Count | | | LAB | | | Plasma | | | | | + +-------+ + + + | RDW-CV | 14.2 | 10.5 - 15.0 % | EXTERNAL [...] | | | + +---------+ + + TSH (08/22/2016 11:18 AM PDT) + +-------+ + + + | Component | Value | Ref Range | Performed | Pathologist | | | | | At | Signature | + +-------+ + + + | TSH | 0.809 | 0.270 - 4.20 | EXTERNAL | | | | | uIU/mL | LAB | | + +-------+ + + + + + | Specimen | + + | Blood specimen | | (specimen) | + + + +---------+ + + | Performing | Address | City/State/Zipcode | Phone Number | | Organization | | | | + +---------+ + + | EXTERNAL LAB | | | | + +---------+ + + Lipid Panel (08/22/2016 11:18 AM PDT) + +---------+ + + + | Component | Value | Ref Range | Performed | Pathologist | | | | | At | Signature | + +---------+ + + + | Cholesterol | 173 | mg/dL | EXTERNAL | | | | | | LAB | | + +---------+ + + + | Triglycerid | 193 (A) | 30 - 150 mg/dL | EXTERNAL | | | es | | | LAB | | + +---------+ + + + | HDL | 45.8 | mg/dl | EXTERNAL | | | | | | LAB | | + +---------+ + + + | LDL, | 89 | mg/dL | EXTERNAL | | | Calculated | | | LAB | | + +---------+ + + + | LDl/HDL | | | EXTERNAL | | | Ratio | | | LAB | | + +---------+ + + + | Chol/HDL | 3.8 | | EXTERNAL | | | Ratio | | | LAB | | + +---------+ + + + | VLDL | 39 | 4 - 40 mg/dL | EXTERNAL | | | | | | LAB | | + +---------+ + + + | Non HDL | 127 | | EXTERNAL | | | Chol. [...] + +---------+ + + Comprehensive Metabolic Panel (08/22/2016 11:18 AM PDT) + + + + + + | Component | Value | Ref Range | Performed | Pathologist | | | | | At | Signature | + + + + + + | Glucose, | 101 (A) | 70 - 100 mg/dL | EXTERNAL | | | Fasting | | | LAB | | + + + + + + | BUN | 28 (A) | 6 - 23 mg/dL | EXTERNAL | | | | | | LAB | | + + + + + + | Creatinine | 0.88 | 0.70 - 1.33 | EXTERNAL | | | | | mg/dL | LAB | | + + + + + + | BUN/Creatin | 31.8 (A) | 6.0 - 28.6 | EXTERNAL | | | ine Ratio | | | LAB | | + + + + + + | Calcium | 10.1 | 8.4 - 10.2 | EXTERNAL | | | | | mg/dL | LAB | | + + + + + + | Protein, | 7.2 | 6.0 - 8.0 g/dL | EXTERNAL | | | Total | | | LAB | | + + + + + + | Albumin | 4.6 | 3.5 - 5.0 | EXTERNAL | | | | | | LAB | | + + + + + + | Globulin | 2.6 | 1.8 - 3.5 | EXTERNAL | | | | | | LAB | | + + + + + + | A/G Ratio | 1.8 | 1.1 - 2.4 | EXTERNAL | | | | | | LAB | | + + + + + + | Bilirubin | 0.3 | 0.0 - 1.2 mg/dL | EXTERNAL | | | Total | | | LAB | | + + + + + + | ALP, | 91 | 31 - 130 | EXTERNAL | | | External | | | LAB | | + + + + + + | ALT | 17 | 7 - 52 U/L | EXTERNAL | | | | | | LAB | | + + + + + + | AST | 19 | 13 - 39 U/L | EXTERNAL | | | | | | LAB | | + + + + + + | Na | 140 | 132 - 143 | EXTERNAL | | | | | mmol/L | LAB | | + + + + + + | K | 4.3 | 3.6 - 5.1 | EXTERNAL | | | | | mmol/L | LAB | | + + + + + + | Cl | 105 | 95 - 112 mmol/L | EXTERNAL | | | | | | LAB | | + + + + + + | CO2 | 20 | 19 - 31 mmol/L | EXTERNAL | | | | | | LAB | | + + + + + + | Anion Gap | 19.3 | 7 - 21 mmol/L | EXTERNAL | | | | | | LAB | | + + + + + + | Estimated | 67 | mg/dL | EXTERNAL | | | [...]
[~2020-01-06 12:39] MED LIST changes: +BREO ELLIPTA I1 EACH INH; +BUPROPION HCL100 MG PO; +FLUOXETINE HCL40 MG PO; +TOLTERODINE TART1 MG PO; +VENTOLIN HFA18 GM INH
[2020-01-06] MEDS ORDERED: MORPHINE SULFAT15 MG PO (13:49)
[2020-01-06] MEDS ORDERED: ONDANSETRON ODT4 MG SL (13:49)
== END 2020-01-06 14:35 | disposition home or self-care (01) ==
LOC: ED 12:39
DX: S52.501A Unspecified fracture of the lower end of right radius, initial encounter for closed fracture (principal); S52.611A Displaced fracture of right ulna styloid process, initial encounter for closed fracture; I10 Essential (primary) hypertension; F32.9 Major depressive disorder, single episode, unspecified; Z87.891 Personal history of nicotine dependence; Z91.048 Other nonmedicinal substance allergy status; Z79.899 Other long term (current) drug therapy; W18.30XA Fall on same level, unspecified, initial encounter
CPT/HCPCS: 29125; 73090; 73110; 99283-25

== ENCOUNTER 2022-07-18 12:17 | Observation (INO) | payer MEDICARE, OTHER ==
[~2022-07-18] VITALS: Ht 167.6 cm; Wt 139.4 kg
[~2022-07-18 12:17] MED LIST changes: -BUPROPION HCL100 MG PO; +BUPROPION XL300 MG PO; -LISINOPRIL20 MG PO; +MORPHINE SULFAT15 MG PO; +ONDANSETRON ODT4 MG SL; -TOLTERODINE TART1 MG PO; +TOLTERODINE TART2 M1 PO; +VITAFOL-OB+DHA1 EACH PO; +ZESTRIL40 MG PO
--- NOTE | 2022-07-18 14:31 | NUR ---
PT TRANSFERRED TO [facility] VIA BED REPORT RECEIVED FROM RN. PT ORIENTED TO THE ROOM AND CALL SYSTEM, VERBALIZES UNDERSTANDING OF NPO STATUS. PT DENIES QUESTIONS R/T SURGICAL PROCEEDURE UPCOMING. PT IS FLUSHED BUT DENIES DISCOMFORTS OR NEEDS. VISITORS X3 PRESENT. PT RESTING QUIETLY IN BED, DR KHAN HAS BEEN IN TO SEE HER AND PLAN GOING FORWARD DISCUSSED. PT DENIES CONCERNS OR FUTHER QUESTIONS
[2022-07-18] MEDS ORDERED: DEXAMETHASONE4 MG PO (14:34)
[2022-07-18] MEDS ORDERED: LORAZEPAM1 MG PO (14:35)
[2022-07-18] MEDS ORDERED: ONDANSETRON ODT8 MG PO (14:36)
--- NOTE | 2022-07-18 14:56 | NUR ---
PT TO O/R MITCHEL BAKER
--- NOTE | 2022-07-18 16:30 | NUR ---
PT BACK TO ROOM ABLE TO AMBULATE TO BED FROM STRETCHER. ALERT AND CHEERFUL.
--- NOTE | 2022-07-18 16:50 | NUR ---
07/18/22 1650 Ofe Duong 1859 PT ARRIVED IN PACU AWAKE WITH NO C/O'S. 1610 SITTING UP IN BED TALKING TO STAFF. 1615 DR AT BEDSIDE. ALL QUESTIONS ANSWERED. 1630 TO ROOM 113. REPORT GIVEN TO RN. PT TRANSFERED SELF FROM STRETCHER TO BED WITH NO C/O'S.
--- NOTE | 2022-07-18 17:46 | NUR ---
PT HAS A NAP THEN AWAKENS TO VOICE FOR VITALS AND EVENING MEAL. DENIES DISCOMFORTS OTHER THAN A "LITTLE HEADACHE" TOO EARLY FOR TYLENOL, SHE STATES IT'S NOT BAD ANYWAY. NEEDED ITEMS IN REACH.
--- NOTE | 2022-07-18 17:46 | HP ---
[facility] [address] [place], [place] [address] Signed ADMISSION DATE: 07/18/2022 REASON FOR ADMISSION: Infected right-sided Port-A-Cath. HISTORY OF PRESENT ILLNESS: This 62-year-old obese white woman is a patient Dr. Kendall. I was called by Dr. Kendall late this morning with concerns over an erythematous infected appearing right-sided Port-A-Cath. The Port-A-Cath was placed at [facility] about a month ago. The patient is undergoing planned chemotherapy for her uterine carcinoma. She is a patient generally of Dr. Chavez. Dr. Kendall attempted to call [facility] for assistance in the problem, but he was unable to get through to anyone who could assist him and on that basis, I was called. The patient has had no fever or chills, but definitely has tenderness in the area of the right chest wall. There appears to be a right-sided Port-A-Cath into the internal jugular vein. PAST MEDICAL HISTORY: Notable for mostly obesity and of course history of the uterine cancer for which she has initiated only one episode of chemotherapy which was not tolerated and the infusion suspended early in its administration. REVIEW OF SYSTEMS: She denies any fever or chills. She does have local tenderness to the Port-A-Cath area and its tract. PHYSICAL EXAMINATION: GENERAL: This is an obese white woman who does not look to be systemically toxic, though she is somewhat erythematous generally and definitely so in the right infraclavicular space. NECK: Trachea is midline. She has no hoarseness. Examination of the port site shows the incision to be intact. There is a disruption slightly in the upper part of the neck where possibly insertion of the catheter had been undertaken. There is definite tenderness and some edema. No evidence of purulent discharge. No separation of the incision itself, which was well apposed. CHEST: Shows normal respiratory excursion. Pulses regular. ABDOMEN: Obese. EXTREMITIES: Show no clubbing, cyanosis, or edema. Lab studies are pending as is a chest x-ray. Electronically Signed By: JERMAIN KHAN MD 07/18/22 1746 PATIENT NAME: YOSELIN PALACIOS HISTORY AND PHYSICAL DATE OF : 62 REPORT #: [id number] PHYSICIAN: JERMAIN KHAN MD PCP: LISANDRA CHAVEZ MD REPORT IS CONFIDENTIAL AND NOT TO BE RELEASED WITHOUT AUTHORIZATION [facility] [address] [place], [place] [address] Signed ASSESSMENT: The patient has an infected appearing right sided Port-A-Cath for which explantation is necessary. Antibiotics have been initiated with Anc. After explantation of the device, she may require additional antibiotic therapy. A chest x-ray was obtained to be sure that the catheter is intact and it has not already sheared off or in some other way embolized (quite unlikely). Would defer replacement of a port device for several days to allow complete clearance of the current infection so as to avoid reinfection of the replaced port device. The risk of bleeding, infection, other unforeseen complications was reviewed with the patient. She understands and wished to proceed. Jermain Khan MD JM/MODL /[id number] cc: MD Treva Coker MD Copies: HI KENDALL MD ~ Electronically Signed By: JERMAIN KHAN MD 07/18/22 1746 PATIENT NAME: YOSELIN PALACIOS HISTORY AND PHYSICAL DATE OF : 62 REPORT #: [id number] PHYSICIAN: JERMAIN KHAN MD PCP: LISANDAR CHAVEZ MD REPORT IS CONFIDENTIAL AND NOT TO BE RELEASED WITHOUT AUTHORIZATION
--- NOTE | 2022-07-18 19:25 | NUR ---
BEDSIDE REPORT RECEIVED FROM OFFGOING RNCHANELL. PT REQUESTS TO USE THE BATHROOM. UP TO BATHROOM AND BACK TO BED WITH SBA. PT TOLERATED WELL. PT REPORTS ADHESIVE ALLERGY, STATES THAT TAPE TO R CHEST AND NECK IS BURNING HER SKIN AND FEELS TIGHT. ADHESIVE REPLACED WITH MICROPORE TAPE, PLACED MINIMALLY TO SKIN, GAUZE PACKING BENEATH TAPE REMAINS IN PLACE. SMALL AMOUNT OF SEROSANG DRAINAGE TO PACKING GAUZE. PT DENIES FURTHER NEEDS AT THIS TIME. CALL LIGHT IN REACH.
--- NOTE | 2022-07-18 20:05 | NUR ---
CALL LIGHT ANSWERED. SCDS ON. pt RESTING IN BED. VSS. pt C/O SAHA. FAN PROVIDED. PRIMARY RN NOTIFIED.
--- NOTE | 2022-07-18 20:36 | NUR ---
PT ASSESSMENT COMPLETE. PT REPORTS PAIN 4/10 HEADACHE, R CHEST, AND R NECK. PRN ADMINISTERED, SEE EMAR. PT DENIES SOB OR NAUEA. DRESSING TO R CHEST C/D/I. SKIN FLUSHED TO R NECK, CHEST, AND ENTIRE FACE. PT STATES IT IS IMPROVING. IV FLUSHED WITH 10 ML NS. WNL. PT DENIES FURTHER NEEDS AT THIS TIME. CALL LIGHT IN REACH. POC FOR THIS SHIFT DISCUSSED. PT DENIES QUESTIONS/ CONCERNS.
--- NOTE | 2022-07-18 21:58 | NUR ---
PT UTILIZED CALL LIGHT, REQUESTS TO USE THE BATHROOM. PT BRUSHED HER TEETH AND VOIDED, ASSISTED BACK TO BED. PT REQUESTS LARGER AND FIRMER SPLINT TO HER ARM FOR IV COMFORT. BATH BLANKET PLACED AT BACK OF ARM AND SECURED WITH COBAN. PT DENIES FURTHER NEEDS AT THIS TIME. CALL LIGHT IN REACH.
--- NOTE | 2022-07-18 22:56 | NUR ---
THERAPIST SPEECH TO ROOM FOR CPOX ALARMING. PT RESTING IN BED. STATES THAT HEADACHE IS BEGINNING TO MAKE HER SICK TO HER STOMACH. COOL CLOTH REQUESTED, PROVIDED. PT REPORTS THAT HEADACHE HAS BEEN OCCURING FOR "MONTHS". DENIES FURTHER NEEDS AT THIS TIME. CALL LIGHT IN REACH.
--- NOTE | 2022-07-19 00:10 | NUR ---
PT UTILIZES CALL LIGHT FOR IV PUMP ALARMING. PT STATES THAT SHE WAS UP TO THE BATHROOM AND BENT HER ARM. PAINTING MACHINE OPERATOR STATES THAT PAIN IS CONTROLLED WHEN PAINTING MACHINE OPERATOR INQUIRES, STATES THAT HEADACHE IS "WANING". PT THEN STATES THAT SHE WOULD LIKE MORE TYLENOL. EMAR DISCUSSED WITH PT, AVAILABILITY OF PRNS. PT THEN STATES THAT SHE DID NOT KNOW THAT SHE WAS RECEIVING PERCOCET OR ANY PRODUCT THAT CONTINAED OXYCODONE. PT STATES SHE NEVER WOULD HAVE AGREED TO ANY MEDICATION WITH OXYCODONE IN IT. PT DECLINES ALLERGY OR ADVERSE REACTION, STATES THAT SHE LIKED THEM "TOO WELL". PT STATES THAT THE ONLY PAIN MEDCIATION SHE PERFERS IS MORPHINE. STATES THAT SHE NEVER FELT "ADDICTED" TO MORPHINE. REPORTS THAT SHE USED TO TAKE 300 MG OF MORPHINE FOR HER HIP. AFTER DISCUSSION AND EDUCATION, PT STATES THAT SHE WOULD LIKE TO TAKE REGULAR TYLENOL. ADMINISTERED. SEE EMAR. WATER REFILLED. PT DENIES FURTHER NEEDS AT THIS TIME. CALL LIGHT IN REACH.
--- NOTE | 2022-07-19 00:50 | NUR ---
INSULATION BLANKET MAKER TO ROOM FOR IV PUMP ALARMING. PT STATES SHE BENT HER ARM. DENIES NEEDS AT THIS TIME. CALL LIGHT IN REACH.
--- NOTE | 2022-07-19 02:35 | NUR ---
PT ASSESSMENT COMPLETE. PT SITTING AT EDGE OF BED. STATES THAT SHE IS TANGLED IN IV TUBING AND PULSE OX CORD. STRATEGIC PARTNERSHIP SPECIALIST ASSISTS PT TO STRAIGHTEN TUBING AND ARRANGE GOWN. BEDDING SITUATED. PT STATES THAT PAIN IS DECREASED TO ABOUT 2-3 AFTER RECENT PRN. DENIES NAUSEA OR SOB. PT STATES THAT SHE EARLIER HAD AN EPISODE OF SHARP PAIN TO R NECK SHE DESCRIBES "SOLDIERS FIGHTING INFECTION". STATES THAT IT QUICKLY SUBSIDED. DRESSING TO R CHEST D/I. SMALL AMOUNT OF SHADOWING PRESENT TO THE SUPERIOR ASPECT OF DRESSING. FLUSHED COLORING OF SKIN CONTINUES TO IMPROVE. VS OBTAINED. WNL. PT ASSISTED TO LAY IN BED. COOL WASH CLOTH PROVIDED. PT DENIES FURTHER NEEDS AT THIS TIME. CALL LIGHT IN REACH.
--- NOTE | 2022-07-19 05:30 | NUR ---
RESEARCH MANAGER TO ROOM FOR SCHEDULED MEDCIATION ADMINISTRATION. IV PUMP ALARMING. IV FLUSHED WITH 10 ML NS. WNL. VS OBTAINED. WNL. PT DENIES FURTHER NEEDS AT THIS TIME. CALL LIGHT IN REACH.
--- NOTE | 2022-07-19 07:34 | NUR ---
PT AWAKE RESTING IN BED AT TIME OF SHIFT REPORT. DENIES DISCOMFORTS STATES SHE HOPES TO GO HOME TODAY. PT EATING AND DRINKING WELL. FRESH H20 TO BEDSIDE CALL LIGHT IN REACH, THOUGH PT IS UP IN THE ROOM INDEPENDANTLY
--- NOTE | 2022-07-19 07:44 | EKG ---
[facility] [address] [place] [address] [address] [place], [place] [address] Signed Normal sinus rhythm Right bundle branch block Abnormal ECG Confirmed by NAKUL PAREDES MD ([id number]) on 07/19/2022 7:44:11 AM Electronically Signed By: NAKUL PAREDES MD 07/19/22 0744 PATIENT NAME: YOSELIN PALACIOS Electrocardiogram DATE OF : 62 PHYSICIAN: NAKUL PAREDES MD REPORT #: [id number] REPORT IS CONFIDENTIAL AND NOT TO BE RELEASED WITHOUT AUTHORIZATION
--- NOTE | 2022-07-19 09:00 | NUR ---
Attempted to see pt, she is in the bathroom. Will return later.
[2022-07-19] MEDS ORDERED: CALCIPOTRIENE60 G1 TOP (09:13)
[2022-07-19] MEDS ORDERED: ACETAMINOPHEN500 MG PO (09:13)
--- NOTE | 2022-07-19 09:13 | NUR ---
MED REC COMPLETE
--- NOTE | 2022-07-19 09:16 | NUR ---
PT UP IN THE CHAIR ANTIMATED AND UPBEAT. CONTINUES TO DENY PAIN. BREAKFAST WELL TOLERATED. DR KHAN IN TO SEE HER DC AND DC INSTRUCTIONS DISCUSSED ALL QUESTIONS ANSWERED. PT HAVING COFFEE NOW WAITING FOR DC PAPERS
[2022-07-19] MEDS ORDERED: AUGMENTIN 500-1 EACH PO (10:55)
--- NOTE | 2022-07-19 11:00 | NUR ---
Notified by UR, pt will qualify for IP admission. Texted Dr. Mccarthy and he let me know he has discharged this pt.
--- NOTE | 2022-07-20 11:36 | OR ---
[facility] [address] [place], [place] [address] Signed DATE OF OPERATION: 07/18/2022 SURGEON: Jermain Khan MD PREOPERATIVE DIAGNOSIS: Infected right internal jugular Port-A-Cath with cellulitic changes. POSTOPERATIVE DIAGNOSIS: Infected right internal jugular Port-A-Cath with cellulitic changes. PROCEDURE: Explantation of right infected internal jugular Port-A-Cath device with debridement of soft tissue and irrigation. ANESTHESIA: General LMA, Johnny Gardner CRNA and local 10 mL of 0.25% Marcaine with epinephrine. INDICATION: This 62-year-old morbidly obese white woman has suffered uterine cancer and underwent a Port-A-Cath type device placement at [facility] over a month ago. She had one episode of chemotherapy under the direction of Dr. Kendall. Her primary provider is Dr. Kumari. She was noted to have poor tolerance of her initial infusion of chemotherapy she tells me, and she has been noted by Dr. Kendall to have erythema, edema, swelling, and so forth related to the port itself. Quite clearly, it is infected. She was urgently referred for explantation of the device. She was admitted by me and begun on IV Ancef antibiotic. Chest x-ray performed shows the catheter to be reasonably well positioned. She does not have elevated white count or fever at this time. She is to undergo explantation of Port-A-Cath device. Understands the risks of bleeding, infection, failure to cure the infection and so forth. Replacement of the catheter will be undertaken in the future after the current infection settles down. DESCRIPTION OF PROCEDURE: The patient was brought to the operating room, given a general LMA type anesthetic. The arms were placed at the side. The upper torso was prepared with a chlorhexidine solution and draped sterilely. The previous transverse incision was incised with an 15 blade entering into the capsule where the port was situated. Inflammatory fluid and clear evidence of infection was noted. A granular fatty like substance was noted as well. The port itself was poorly secured, indeed was tilted and had apparent Electronically Signed By: JERMAIN KHAN MD 07/20/22 1136 PATIENT NAME: YOSELIN PALACIOS OPERATIVE REPORT DATE OF : 62 REPORT #: [id number] PHYSICIAN: JERMAIN KHAN MD PCP: LISANDRA CHAVEZ MD REPORT IS CONFIDENTIAL AND NOT TO BE RELEASED WITHOUT AUTHORIZATION [facility] [address] [place], [place] [address] Signed liquefactive necrosis of the sutures proper. The catheter was manipulated and after cultures were obtained of the fluid and carefully withdrawn. The venous track was milked from the upper aspect distalward showing no evidence actual pus, but free-flowing of blood to the catheter tract canal. The tract site was secured with 3-0 Vicryl suture. Irrigation was undertaken. Inspection of the port device and the catheter showed there to be no other abnormality with it. Irrigation was undertaken copiously. The initial puncture site at the base of the neck was inflamed and this site was ellipsed with a 15 blade and gently debrided. It was irrigated and electrocautery was used for hemostasis. Once that area was hemostatic as well as the port device, which was copiously irrigated with sterile saline, the wounds were inspected and found to be completely hemostatic. A single interrupted 3-0 Vicryl was used in the deep dermal layer of the main incision. The neck incision was left open without closure. Gauze was gently packed into that site and packed over the transverse incision of the pectoralis. Silk tape was applied. At that point the inflammation and edema of the infected chest wall was already seen to be improving. The patient was ultimately extubated and transferred to the recovery room in good condition. CONCLUDING DIAGNOSIS: Infected Port-A-Cath device right internal jugular approach, now explanted. PLAN: We will keep her for additional IV antibiotics, given the findings and likely discharge home with oral antibiotics tomorrow. MD SYD Tobar/MODL /[id number] Electronically Signed By: JERMAIN KHAN MD 07/20/22 1136 PATIENT NAME: YOSELIN PALACIOS OPERATIVE REPORT DATE OF : 62 REPORT #: [id number] PHYSICIAN: JERMAIN KHAN MD PCP: LISANDRA CHAVEZ MD REPORT IS CONFIDENTIAL AND NOT TO BE RELEASED WITHOUT AUTHORIZATION [address] [address] Signed cc: MD Hi Perez MD Copies: HI KENDALL MD ~ Electronically Signed By: JERMAIN KHAN MD 07/20/22 1136 PATIENT NAME: YOSELIN PALACIOS OPERATIVE REPORT DATE OF : 62 REPORT #: [id number] PHYSICIAN: JERMAIN KHAN MD PCP: LISANDRA CHAVEZ MD REPORT IS CONFIDENTIAL AND NOT TO BE RELEASED WITHOUT AUTHORIZATION
== END 2022-07-19 10:20 | disposition home or self-care (01) ==
LOC: CCU 12:17 → MS 12:17 → EDSTATUS 15:00 → MS 07-19 10:20
PROVIDERS: ADMIT Surgery; ATTEND Surgery
PROC: 0JPT0WZ Removal of Totally Implantable Vascular Access Device from Trunk Subcutaneous Tissue and Fascia, Open Approach (ICD-10-PCS; principal; 2022-07-18 15:00)
DX: T82.7XXA Infection and inflammatory reaction due to other cardiac and vascular devices, implants and grafts, initial encounter (principal); Y71.2 Prosthetic and other implants, materials and accessory cardiovascular devices associated with adverse incidents; E66.01 Morbid (severe) obesity due to excess calories
CPT/HCPCS: 00532; 36415; 71045; 80053; 85025; 93005; 93010; 96375; 96376; A9270; C9803; G0378; J0131; J0690; J1100; J2001; J2405; J2704; J3010; J7121; U0003

== ENCOUNTER 2022-12-09 07:55 | Day surgery (SDC) | payer MEDICARE, OTHER ==
[2022-12-05 14:51] VITALS: BP 119/63
[~2022-12-09] VITALS: Ht 167.6 cm; Wt 140.9 kg
[~2022-12-09 07:55] MED LIST changes: +ACETAMINOPHEN500 MG PO; +AUGMENTIN 500-1 EACH PO; +CALCIPOTRIENE60 G1 TOP; +DEXAMETHASONE4 MG PO; +LORAZEPAM1 MG PO; +ONDANSETRON ODT8 MG PO
[2022-12-09 08:08] VITALS: BP 153/41
[2022-12-09] MEDS ORDERED: OXYCODON-ACETA1 EAC2 PO (10:34)
[2022-12-09] MEDS ORDERED: IBUPROFEN600 MG PO (10:34)
[2022-12-09] MEDS ORDERED: ACETAMINOPHEN500 MG PO (10:35)
--- NOTE | 2022-12-09 10:49 | NUR ---
12/09/22 Connie9 Anne-Marie Brewster 1015- PT ARRIVES TO PACU, RESTING BUT RESPONSIVE TO VERBAL STIMULI. REPORTS PAIN 3/10 AND TOLERABLE AT THIS TIME. DRESSINGS IN PLACE AND CDI. LR INFUSING TO RFA. ALLMONITORS IN PLACE.
[2022-12-09 11:18] VITALS: BP 128/51
--- NOTE | 2022-12-09 14:14 | OR ---
[facility] [address] [place], [place] [address] Signed DATE OF OPERATION: 12/09/2022 SURGEON: Jermain Khan MD PREOPERATIVE DIAGNOSES: 1. Uterine carcinoma status post chemotherapy, ongoing Keytruda biologic therapy. 2. Morbid obesity (greater than 325 pounds). 3. History of infected right internal jugular port with explantation on July 18, 2022 (placed [facility]). POSTOPERATIVE DIAGNOSES: 1. Uterine carcinoma status post chemotherapy, ongoing Keytruda biologic therapy. 2. Morbid obesity (greater than 325 pounds). 3. History of infected right internal jugular port with explantation on July 18, 2022 (placed [facility]). PROCEDURE PERFORMED: 1. Placement of left subclavian Bard port catheter, prolonged complicated difficult. 2. Surgeon-directed fluoroscopy. ANESTHESIA: Local with monitored anesthesia care and Haris Lepe PERSONAL ATTENDANT including local 20 mL of 0.25% Marcaine with epinephrine. INDICATION: This 62-year-old white woman who is a patient of Dorota Chavez. I met her first in July of 2022, having presented with toxicity and an infected right internal jugular Port-A-Cath that had been placed at [facility]. She underwent explantation of the device. She remains considerably obese greater than 315 pounds. Her underlying malignancy was uterine cancer. She has undergone chemotherapy by Dr. Kendall and now under biologic agent Keytruda only. She has had difficulty with peripheral access. On that basis, Port-A-Cath replacement is indicated. The risk of bleeding, infection, and other various malfunctions of the port device have been reviewed with her in detail. She understands and wished to proceed. Of note, so as to avoid the previously infected right internal jugular site and right pectoral port site, a left-sided approach will be undertaken. FINDINGS: Access to the left subclavian vein was straightforward. Dark, nonpulsatile blood was Electronically Signed By: JERMAIN KHAN MD 12/09/22 1414 PATIENT NAME: YOSELIN PALACIOS OPERATIVE REPORT DATE OF : 62 REPORT #: [id number] PHYSICIAN: JERMAIN KHAN MD PCP: DOROTA CHAVEZ MD REPORT IS CONFIDENTIAL AND NOT TO BE RELEASED WITHOUT AUTHORIZATION [facility] [address] [place], [place] [address] Signed noted. Initial passage of the wire was impaired and therefore a more lateral approach was accomplished without problem. Ultimately, the catheter was placed and noted to have good function and a good contour on x-ray and fluoroscopic confirmation. She has considerable obesity that is noted and therefore a long needle will likely be required for access to the port going forward. PROCEDURE IN DETAIL: The patient was brought to the operating room, placed in supine position. Given her girthsome body habitus, her arms could not be fully supported by anything other than arm extenders placed laterally. Preoperative antibiotic Ancef was given. Sequential compression device stockings used and heparin subcutaneously administered. The upper torso was prepared with a chlorhexidine solution after induction of intravenous sedation with propofol infusional technique and airway management by the rn infusion. Mild Trendelenburg position was maintained. After sterile draping of the upper torso and neck, 0.25% Marcaine with epinephrine was injected in the left subclavian area. Using the Seldinger technique, the left subclavian vein was easily accessed showing dark nonpulsatile blood. Passage of a flexible J-wire down the needle was repeatedly undertaken confirming that there was good aspiration of venous blood, however, it simply would not pass. A more lateral approach (1 cm or 2) was undertaken and repeat application of needle did deliver dark nonpulsatile blood once again and a different (new) J-wire passed down the needle without impediment. Fluoroscopic confirmation of the wire in the right heart system was then undertaken. Local anesthesia was injected transversely over the left pectoral area. Dissection carried through the skin and subcutaneous tissue with 15 blade using electrocautery for hemostasis. She has thick subcutaneous layer overlying the left chest wall irrespective of breast tissue proper. The pectoral fascia was ultimately identified and a pocket inferiorly dissected free bluntly. A port device was partially secured to the pectoralis fascia. Attention was turned towards the wire emanating from the left infraclavicular area. The site was incised with 11 blade. A dilator and subsequently dilator and peel-away introducer passed over the wire without problem. The wire and dilator were removed showing vigorous retrograde venous bleeding. The previously inspected Groshong catheter from the Bard port kit was passed down the peel-away sheath introducer without problem. Peel-away sheath introducer removed completely. Fluoroscopy was then undertaken in the neutral position suggesting the tip of the catheter to be in the atriocaval junction. Using the tunneling device, the catheter was delivered to the pocket and secured to the Electronically Signed By: JERMAIN KHAN MD 12/09/22 1414 PATIENT NAME: YOSELIN PALACIOS OPERATIVE REPORT DATE OF : 62 REPORT #: [id number] PHYSICIAN: JERMAIN KHAN MD PCP: DOROTA CHAVEZ MD REPORT IS CONFIDENTIAL AND NOT TO BE RELEASED WITHOUT AUTHORIZATION [facility] [address] [place], [place] [address] Signed port per java xml developer's instructions with the enclosed collar device. The port was more fully secured to the pectoralis fascia with 2-0 Vicryl suture with at least three-point fixation and four sutures in total applied. Access to the port with an angled Gallego needle showed easy aspiration of blood and infusion of heparinized saline. Fluoroscopy was once again performed with contrast showing good contour of the port in relation to the clavicle. The port itself and the tip of the catheter noted to be in the superior vena cava at the atriocaval junction. The port was once again flushed with heparinized saline. The pocket was then closed with interrupted 2-0 Vicryl and running subcuticular 3-0 Vicryl for the skin. Steri-Strips were applied as was an Acticoat dressing. The puncture site beneath the left clavicle was secured with interrupted 3-0 Vicryl, Steri-Strips, and ultimately an OpSite. The patient was ultimately allowed to emerge from sedation, taken to recovery room in good condition, and suffered no complication. Sponge, needle, and instrument counts reported as correct x3. The operation was prolonged, complicated, and difficult in large part related to extreme obesity, it was accomplished safely. MD SYD Tobar/SRINI /[id number] cc: MD Dr. Dorota Coker Copies: HI KENDALL MD ~ Electronically Signed By: JERMAIN KHAN MD 12/09/22 0720 PATIENT NAME: PHILIPYOSELIN TERESA OPERATIVE REPORT DATE OF : 62 REPORT #: [id number] PHYSICIAN: JERMAIN KHAN MD PCP: DOROTA CHAVEZ MD REPORT IS CONFIDENTIAL AND NOT TO BE RELEASED WITHOUT AUTHORIZATION
== END 2022-12-09 11:32 | disposition home or self-care (01) ==
LOC: DS 07:55
PROVIDERS: ATTEND Surgery
PROC: 02HV33Z Insertion of Infusion Device into Superior Vena Cava, Percutaneous Approach (ICD-10-PCS; 2022-12-09)
PROC: 0JH60WZ Insertion of Totally Implantable Vascular Access Device into Chest Subcutaneous Tissue and Fascia, Open Approach (ICD-10-PCS; principal; 2022-12-09 09:25)
DX: C54.1 Malignant neoplasm of endometrium (principal); E66.01 Morbid (severe) obesity due to excess calories; Z68.43 Body mass index [BMI] 50.0-59.9, adult; I10 Essential (primary) hypertension
CPT/HCPCS: 00532; 71045; 77001; 93005; 93010; C1788; J0131; J0690; J1644; J1885; J2001; J2405; J2704; J3490; J7121

== ENCOUNTER 2023-07-21 13:28 | Day surgery (SDC) | payer MEDICARE, OTHER ==
[~2023-07-21 13:28] MED LIST changes: +IBUPROFEN600 MG PO; +OXYCODON-ACETA1 EAC2 PO
[2023-07-21] MEDS ORDERED: HEParin SOD (PORCINE) 500 UNIT/5 ML ML ONE (14:44)
[2023-07-21] MEDS ORDERED: HEParin SOD (PORCINE) 500 UNIT/5 ML ML IV ONE (14:45)
--- NOTE | 2023-07-23 14:48 | CONS ---
[facility] [address] [place], [place] [address] Signed DATE OF CONSULTATION: 07/21/2023 ISSUE: Nonfunctional left subclavian port device. HISTORY OF PRESENT ILLNESS: This morbidly obese 63-year-old white woman was afflicted by advanced stage uterine cancer. She is a patient of Dr. Chavez as well as Dr. Kendall. Endometrial carcinoma had been identified and she has been on long-term treatment biologic agent Keytruda. She underwent placement of a right internal jugular port device at [facility] in the [facility], which was infected and required emergency explantation due to sepsis. A left subclavian port device was placed by me on December 09, 2022. The catheter had been working fine at operation. Attempts at accessing the left subclavian port device have been unsuccessful by nurses in the chemotherapy clinic. It was concerning that perhaps her chest wall was too thick and despite using long Gallego needle access was still not forthcoming. The device was perceived on attempts to do so, but needle penetration was considered not possible. I had her undergo a chest x-ray and a lateral view, which shows the port device to be appropriately oriented and without having been "flipped." Concern is maintained with that the port device, though well positioned, is nonfunctional. I have asked her to see me for access of the device myself. REVIEW OF SYSTEMS: She had no shortness of breath or chest pain. She has had no hematemesis or blood per rectum, arm swelling or neck swelling. Her last Keytruda was yesterday. PHYSICAL EXAMINATION: GENERAL: Morbidly obese white woman, who looks to be in no distress. She does have general erythema of her torso and head and neck, which is typical for her. CHEST: Clear. HEART: Regular without murmur. The left anterior chest wall with transverse incision appears to be well healed. The port device easily proceed through the skin. ASSESSMENT: The port is not flipped and whether or not it has a clot or is simply difficult to access by some other reason is uncertain. On that basis, I have offered access to the port with an angled Gallego needle, flushing the port and verification of its function, she agrees to this. PLAN: Access to Port-A-Cath device flushing as appropriate. Electronically Signed By: JERMAIN KHAN MD 07/23/23 1448 PATIENT NAME: YOSELIN PALACIOS CONSULTATION DATE OF : 62 REPORT #: [id number] PHYSICIAN: JERMAIN KHAN MD PCP: LISANDRA CHAVEZ MD REPORT IS CONFIDENTIAL AND NOT TO BE RELEASED WITHOUT AUTHORIZATION [facility] [address] [place], [place] [address] Signed MD SYD Tobar/MIGUELL /[id number] cc: Dr. Vandana Kendall MD [facility] Copies: HI KENDALL MD ~ Electronically Signed By: JERMAIN KHAN MD 07/23/23 1448 PATIENT NAME: YOSELIN PALACIOS CONSULTATION DATE OF : 62 REPORT #: [id number] PHYSICIAN: JERMAIN KHAN MD PCP: LISANDRA CHAVEZ MD REPORT IS CONFIDENTIAL AND NOT TO BE RELEASED WITHOUT AUTHORIZATION
--- NOTE | 2023-07-23 14:48 | OR ---
[facility] [address], [place] [address] Signed DATE OF OPERATION: 07/21/2023 SURGEON: Jermain Khan MD PREOPERATIVE DIAGNOSIS: Nonfunctioning left subclavian port device. POSTOPERATIVE DIAGNOSIS: Completely patent and normal left subclavian port device. PROCEDURE: Access of left subclavian port with flexion of heparinized saline 100 units/mL. HISTORY: This 63-year-old obese white woman has a history of advanced uterine carcinoma having undergone surgical therapy elsewhere. She had placement of a right internal jugular port device in the [facility], which became infected, requiring emergency removal. She had subsequent placement of a left subclavian port device by me on December 09, 2022. Her initial infection with the port had been in July 2022. Various attempts at access of the left subclavian port have been unsuccessful in the [facility]. It was the contention of her nurse providers that she had too thick in the chest wall despite use of a long needle and secondary concerns at the port was either flipped or "too tough" to penetrate with the needle. I had her undergo a chest x-ray in the lateral view, which showed the port to be well positioned and without evidence of having flipped over. I have asked her to come today to attempt port access and flushing of the device as appropriate. Of note, the patient has Keytruda immunotherapy every six weeks and that has been accessed by peripheral means without problem. FINDINGS: The port was accessed with a long angled Gallego needle. Aspiration of normal-appearing blood was noted. The catheter was flushed, ultimately heparinized saline without problem. It was not excessively deep in the chest wall in my estimation. The port was located inferior to the transverse incision as would be expected and more medially in the length of the incision. PROCEDURE IN DETAIL: In the semi-recumbent position, the chest wall was sprayed with a cryo solution for Electronically Signed By: JERMAIN KHAN MD 07/23/23 1448 PATIENT NAME: YOSELIN PALACIOS OPERATIVE REPORT DATE OF : 62 REPORT #: [id number] PHYSICIAN: JERMAIN KHAN MD PCP: LISANDRA CHAVEZ MD REPORT IS CONFIDENTIAL AND NOT TO BE RELEASED WITHOUT AUTHORIZATION [address] [address] Signed anesthetic benefit, later 1 mL of 1% lidocaine was injected locally. The area was prepared with a chlorhexidine solution and draped sterilely. An angled butterfly Gallego needle long was manipulated and passed into the port device. Aspiration showed dark nonpulsatile blood. Heparinized saline was used to flush the port thoroughly thereafter and the needle was removed and Band-Aid was applied. ASSESSMENT: Successful access of the left subclavian Port-A-Cath device. It appears to be functional and is now well flushed. We will review this with the [facility]. Day surgery nurses who are quite accustomed to port access were present during the course of this intervention and may be helpful to the Cancer Clinic for access if it is not forthcoming under their direction. MD SYD Tobar/SRINI /[id number] cc: Dr. Vandana Kendall MD Copies: HI KENDALL MD ~ Electronically Signed By: JERMAIN KHAN MD 07/23/23 1448 PATIENT NAME: YOSELIN PALACIOS OPERATIVE REPORT DATE OF : 62 REPORT #: [id number] PHYSICIAN: JERMAIN KHAN MD PCP: LISANDRA CHAVEZ MD REPORT IS CONFIDENTIAL AND NOT TO BE RELEASED WITHOUT AUTHORIZATION
== END 2023-07-21 14:50 | disposition home or self-care (01) ==
LOC: DS 13:28
PROVIDERS: ATTEND Surgery
DX: Z45.2 Encounter for adjustment and management of vascular access device (principal); Z68.43 Body mass index [BMI] 50.0-59.9, adult; Z85.42 Personal history of malignant neoplasm of other parts of uterus; E66.01 Morbid (severe) obesity due to excess calories
CPT/HCPCS: 96374; 96523

== ENCOUNTER 2024-02-22 07:40 | Day surgery (SDC) | payer MEDICARE, OTHER ==
[2024-02-20 13:11] VITALS: BP 132/74
[~2024-02-22] VITALS: Ht 167.6 cm; Wt 136.4 kg
[~2024-02-22 07:40] MED LIST changes: +CEFAZOLIN SODIUM 3 GM/30 ML SYR IV SCH; +IBLOOD GLUCOSE TEST STRIP 1 EA TEST VI PRN; +KEYTRUDA100 MG/4 M INJ; +LACTATED RINGER'S 1,000 ML IV SCH; +LEVOTHYROXINE50 MCG PO; +LIDOCAINE HCL 1% 5 ML SDV INJ ONE
[2024-02-22 07:52] VITALS: BP 153/55
[2024-02-22] MEDS ORDERED: LIDOCAINE HCL 2% 5 ML SDV ONE (08:39)
[2024-02-22] MEDS ORDERED: propofoL 200 MG/20 ML VIAL ONE ×3 (08:39→09:25)
[2024-02-22 09:57] VITALS: BP 101/64
--- NOTE | 2024-02-22 10:28 | NUR ---
02/22/24 1028 Sara Son 0934- PT ARRIVES TO THE PACU WITH A NATURAL AIRWAY AND MASK INPLACE WITH 6L OF O2. PT IS NON REACTIVE TO VERBAL AND TACTILE STILMULI. LR INFUSING IN THE R FOREARM. ABDOMEN IS SOFT AND NONDISTENDED. PT PASSING SMALL AMOUNTS OF GAS OFF AND ON. ALL MONITORS IN PLACE. 0936- PT OPENS EYES AND RESPONDS TO QUESTIOSN ACCORDINGLY. O2 TURNED OFF AND MASK REMOVED. PT DENIES PAIN AND NAUSEA. PT ENCOURAGES TO PASS GAS. 0940- PT PASSING GAS. 0948- MD AT BEDSIDE TALKING WITH PT. 1004- PT SITTING UP SIDE OF BED. PT DENIES PAIN AND NAUSEA. ALL MONITORS REMOVED. IV REMOVED. PT ABLE TO AMBULATE INDEPENDENTLY TO THE RESTROOM WITH AN EVEN AND STEADY GAIT. PT GETTING DRESSED IN BATHROOM WITH NO ISSUES. 1010- PT COMES OUT OF THE RESTROOM DRESSED. PT GETS INTO WHEELCHAIR WITH NO ISSUES. DC INSTRUCTIONS GIVEN. NO QUESTIONS OR CONCERNS. PT DC WITH ALL BELONGINGS FROM PACU.
--- NOTE | 2024-02-23 06:28 | OR ---
[facility] [address] [place], [place] [address] Signed DATE OF OPERATION: 02/22/2024 SURGEON: Lopez Mills MD PREOPERATIVE DIAGNOSES: 1. Paternal grandmother with colon cancer in her 40s. 2. Internal hemorrhoids. POSTOPERATIVE DIAGNOSES: 1. 3 mm polyp at 5 cm in the rectum. 2. Tortuous left colon. 3. Minimal sigmoid diverticulosis. 4. Minimal internal and external hemorrhoids. PROCEDURE: Colonoscopy with hot biopsy. ESTIMATED BLOOD LOSS: None. INDICATIONS: Ivana is a 63-year-old obese female, asked to see me for a followup colonoscopy. We know her paternal grandmother had colon cancer in her 40s and from the cancer in her 50s. I have helped Ivana in 2014 at age of 53 and again in 2018 at the age of 57 with colonoscopies. We could barely get the procedure completed with our Versed and fentanyl. She also has significant sleep apnea, obesity, COPD, hypertension, and hypoventilation syndrome. Consequently, we asked for monitored anesthesia care propofol infusion. That worked out very well today. We know that she does have some internal hemorrhoids. We then have her come every five years. In the meantime, she has had a hysterectomy for uterine cancer and a right hip replacement. She has no lower GI complaints. In the office, I gave her a pamphlet on colonoscopy. We had reviewed the nature of the test. There is risk including, but not limited to gas bloating, crampy abdominal pain, bleeding, perforation requiring surgery, and missed diagnosis. We also reviewed the need for preoperative Ancef for her right hip. She understands an adult person has to take her home afterwards. She had expressed understanding and wished to proceed. PROCEDURE IN DETAIL: Ivana was taken into our endoscopy suite and placed in the left lateral decubitus position. 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 A digital rectal exam was performed. She has some very small external hemorrhoids. She had good sphincter tone. There were no masses. The adult colonoscope was introduced and advanced all the way around into the cecum under direct visualization of camera. It took about double the amount of time to get through her tortuous colon and finally down into the cecum itself. Fortunately, her prep was good. We could easily see the appendiceal orifice and ileocecal valve. The scope was slowly withdrawn. We took pictures throughout for photodocumentation. We did see just a few diverticula in the sigmoid colon. Upon retroflexion of the scope in the rectum she does have minimal to moderate internal hemorrhoid columns as well. After this, the gas was suctioned out. Before the scope was removed we took out a tiny 3 mm polyp just above the anal canal about 5 cm. After this, the gas was suctioned out. The colonoscope removed. Ivana tolerated the procedure quite well. RECOMMENDATIONS: I will see Ivana back in my office in 7 to 14 days to review her results. I suspect she will stay on the five year plan. Lopez Mills MD [facility]/MODL /[id number] cc: MD Dr. Dorota David Copies: LOPEZ MILLS MD ~ Electronically Signed By: LOPEZ MILLS MD 02/23/24 0628 PATIENT NAME: IVANA PALACIOS OPERATIVE REPORT DATE OF : 62 REPORT #: [id number] PHYSICIAN: LOPEZ MILLS MD PCP: DOROTA CHAVEZ MD REPORT IS CONFIDENTIAL AND NOT TO BE RELEASED WITHOUT AUTHORIZATION
== END 2024-02-22 10:10 | disposition home or self-care (01) ==
LOC: DS 07:40
PROVIDERS: ATTEND Colon & Rectal Surgery
PROC: 0DBP8ZX Excision of Rectum, Via Natural or Artificial Opening Endoscopic, Diagnostic (ICD-10-PCS; principal; 2024-02-22 09:15)
DX: K62.1 Rectal polyp (principal); K63.89 Other specified diseases of intestine; K64.8 Other hemorrhoids; K64.4 Residual hemorrhoidal skin tags; K57.30 Diverticulosis of large intestine without perforation or abscess without bleeding; E66.9 Obesity, unspecified; J44.9 Chronic obstructive pulmonary disease, unspecified; C54.1 Malignant neoplasm of endometrium; I12.9 Hypertensive chronic kidney disease with stage 1 through stage 4 chronic kidney disease, or unspecified chronic kidney disease; N18.30 Chronic kidney disease, stage 3 unspecified; G47.33 Obstructive sleep apnea (adult) (pediatric); E03.9 Hypothyroidism, unspecified; Z68.42 Body mass index [BMI] 45.0-49.9, adult; Z79.899 Other long term (current) drug therapy; Z80.0 Family history of malignant neoplasm of digestive organs; Z88.8 Allergy status to other drugs, medicaments and biological substances
CPT/HCPCS: 00811; J0690; J2704; J7121